=== PATIENT | female | born 1940 | race Caucasian/White ===

== ENCOUNTER 2019-12-04 08:17 | Outpatient (CLI) | payer MEDICARE, SELFPAY ==
--- NOTE | ~2019-12-04 | XR_ITS ---
EXAMINATION: XR chest 2V DATE: 12/04/2019 08:36 INDICATION: Shortness of breath TECHNIQUE: PA and lateral views of the chest are obtained. COMPARISON: 07/18/2018 FINDINGS: The lungs are free of acute opacities. There is no pleural effusion or pneumothorax. The ca rdiomediastinal silhouette is normal. There is mild thoracic spondylosis. A calcified nodule of the l eft lung apex is consistent with old granulomatous disease. There is a large hiatal hernia with likel y intrathoracic stomach. IMPRESSION: 1. No acute cardiopulmonary abnormality. Reviewed, dictated and finalized at location A.
== END 2019-12-04 08:18 | disposition home or self-care (01) ==
DX: R06.02 Shortness of breath (principal)
CPT/HCPCS: 71046

== ENCOUNTER → 2020-04-20 15:00 | Outpatient (CLI) | payer MEDICARE, SELFPAY ==
--- NOTE | ~2020-04-20 | MM_ITS ---
EXAMINATION: MM screening [place] BI w benny HISTORY: Screening TECHNIQUE: Craniocaudal and mediolateral oblique 3-D tomosynthesis images were obtained and synthetic 2-D images were generated. CAD analysis was submitted and interpreted. COMPARISON: No prior mammogram is available for comparison at this institution. BREAST PARENCHYMAL COMPOSITION: There are scattered areas of fibroglandular density. FINDINGS: There are clustered indeterminate left breast calcifications in the upper central left kathie st. No mammographic evidence for malignancy in the right breast. IMPRESSION: 1. Clustered indeterminate left breast calcifications. 2. Magnification views are recommended. BI-RADS CATEGORY 0 - INCOMPLETE STUDY, NEED ADDITIONAL IMAGING EVALUATION. Reviewed, dictated and finalized at location A. 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
== END ==
PROVIDERS: PCP Internal Medicine; Visit Provider Internal Medicine
DX: Z12.31 Encounter for screening mammogram for malignant neoplasm of breast (principal); R92.8 Other abnormal and inconclusive findings on diagnostic imaging of breast
CPT/HCPCS: 77063; 77067

== ENCOUNTER → 2020-05-18 08:54 | Outpatient (CLI) | payer MEDICARE, SELFPAY ==
--- NOTE | ~2020-05-18 | MMUS_ITS ---
EXAMINATION: MM diagnostic mammo unilat LT, US breast LT limited HISTORY: Increasing number and density of pleomorphic calcifications in upper central left breast rep orted on 04/20/2020 bilateral digital screening mammogram TECHNIQUE: Additional ML view of the left breast. Magnification views of the left breast. CAD analysi s was submitted and interpreted. High resolution upper inner and upper outer quadrant left breast ult rasound was performed. COMPARISON: 04/20/2020 bilateral digital screening mammogram FINDINGS: MAMMOGRAPHIC FINDINGS: There are scattered benign calcifications including grouped microcalcifications in the upper mid left breast which have benign configuration most suggestive of partially calcified fibroadenoma. ULTRASOUND: No suspicious mass or suspicious shadowing is detected in the upper inner or upper outer quadrants. IMPRESSION: 1. Benign calcification; no mammographic evidence of malignancy 2. Routine annual mammographic screening is recommended. BI-RADS Category 2: Benign finding(s). Reviewed, dictated and finalized at location A. 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 Benign calcification; no mammographic evidence of malignancy 2. Routine annual mammographic screening is recommended. BI-RADS Category 2: Benign finding(s).
== END ==
PROVIDERS: PCP Internal Medicine; Visit Provider Internal Medicine
DX: R92.8 Other abnormal and inconclusive findings on diagnostic imaging of breast (principal)
CPT/HCPCS: 76642; 77065

== ENCOUNTER → 2020-11-09 12:17 | Outpatient (CLI) | payer MEDICARE, SELFPAY ==
--- NOTE | ~2020-11-09 | DEXA_ITS ---
Bone Density Report Name: Libby Davey Age: 80 Sex: Female Ethnicity: White Date of : 1940 Indication: osteopenia; height loss; postmenopausal Referring Provider: Gregorio, Brittnee Martinez Study: Bone densitometry was performed. Exam Date: November 09, 2020 Accession number: [id number] Bone Density: Region BMD T-score Z-score Classification AP Spine (L1-L4) 0.853 -1.8 1.0 Osteopenia Femoral Neck (Left) 0.689 -1.4 1.0 Osteopenia Total Hip (Left) 0.771 -1.4 0.8 Osteopenia Femoral Neck (Right) 0.652 -1.8 0.6 Osteopenia Total Hip (Right) 0.709 -1.9 0.3 Osteopenia Total Hip Mean 0.740 -1.7 0.6 Osteopenia World Health Organization criteria for BMD impression classify patients as: Normal (T-score at or above -1.0), Osteopenia (T-score between -1.0 and -2.5), or Osteoporosis (T-score at or below -2.5). 10-year Fracture Risk(1): Major Osteoporotic Fracture 13% Hip Fracture 3.8% Reported Risk Factors: [place] (), Neck BMD=0.652, BMI=21.7 (1) FRAX(R) Version 3.08. Fracture probability calculated for an untreated patient. Fracture probability may be lower if the patient has received treatment. Previous Exams: Region Exam Age BMD T-score BMD Change BMD Change Date g/cm2 vs Baseline vs Previous AP Spine(L1-L4) 11/09/2020 80 0.853 -1.8 -0.091* -0.091* 10/16/2017 77 0.944 -0.9 Total Hip(Left) 11/09/2020 80 0.771 -1.4 0.002 0.002 10/16/2017 77 0.768 -1.4 Total Hip(Right) 11/09/2020 80 0.709 -1.9 -0.046* -0.046* 10/16/2017 77 0.755 -1.5 *Denotes significance at 95% confidence level, LSC for AP Spine = 0.022 g/cm2, LSC for Total Hip = 0.027 g/cm2 Clinical Information Provided by Patient: Has used the following medications: Vitamin D, Calcium, MTV Patient maximum height was 65.5 Menopause Age: 53 No regular weight bearing exercise Does not regularly consume dairy products Drinks caffeinated beverages Onset of menses at age 11 Number of children 0 Impression: The patient has low bone mass, based on the Right Total Hip T-score. The patient has an estimated ten-year risk of hip fracture of 3.8% and an estimated ten-year risk of major fracture of 13%, based on the WHO FRAX algorithm. The BMD for the AP Spine(L1-L4) decreased, changing by -0.091 since the last DXA exam. The BMD for the Total Hip(Right) decreased, changing by -0.046 since the last DXA exam. Discussion: CODI
== END ==
PROVIDERS: PCP Internal Medicine; Visit Provider Internal Medicine
DX: Z78.0 Asymptomatic menopausal state (principal); M85.88 Other specified disorders of bone density and structure, other site; M85.851 Other specified disorders of bone density and structure, right thigh; M85.852 Other specified disorders of bone density and structure, left thigh
CPT/HCPCS: 77080

== ENCOUNTER → 2021-05-19 13:10 | Outpatient (CLI) | payer MEDICARE, SELFPAY ==
--- NOTE | ~2021-05-19 | MM_ITS ---
EXAMINATION: MM screening [place] BI w benny HISTORY: Screening mammogram TECHNIQUE: Craniocaudal and mediolateral oblique 3-D tomosynthesis images were obtained and synthetic 2-D images were generated. CAD analysis was submitted and interpreted. COMPARISON: 05/18/2020 diagnostic left mammogram and limited left breast ultrasound 04/20/2020, 09/14/2018 lateral screening mammogram examinations BREAST PARENCHYMAL COMPOSITION: There are scattered areas of fibroglandular density. FINDINGS: Again noted are scattered bilateral benign calcifications. There is no evidence of suspicio us mass, calcification, or architectural distortion to suggest malignancy in either breast. There has been no suspicious interval change. IMPRESSION: 1. No mammographic evidence of malignancy. 2. Recommend routine screening mammography in one year. BI-RADS Category 2: Benign finding(s). Reviewed, dictated and finalized at location A. 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
== END ==
PROVIDERS: PCP Internal Medicine; Visit Provider Internal Medicine
DX: Z12.31 Encounter for screening mammogram for malignant neoplasm of breast (principal)
CPT/HCPCS: 77063; 77067

== ENCOUNTER 2021-12-15 23:48 | Inpatient (IN) | payer MEDICARE, SELFPAY ==
--- NOTE | ~2021-12-15 | CT_ITS ---
EXAMINATION: CT abdomen pelvis w con DATE: 12/16/2021 02:54 INDICATION: Epigastric pain. Elevated liver enzymes. TECHNIQUE: Computed tomography (CT) of the abdomen and pelvis was performed with 100 mL Omnipaque-300 intravenous contrast. Automated exposure control and iterative reconstruction technique were employe d. The dose-length product was 250.03 mGy-cm. COMPARISON: None FINDINGS: Compressive atelectasis in the bilateral lower lobes along the margin of a large sliding-type hiatal hernia which contains the entire fluid-filled stomach. Mild cardiomegaly. Atherosclerotic coronary ar sergey calcifications. Aortic valve and mitral annular calcification is. No pericardial effusion. Cholecystectomy clips in the gallbladder fossa. Mild diffuse intrahepatic biliary ductal dilation and dilation of the common bile duct to 1.2 cm. There is a 9 mm round soft tissue density filling defect in the distal common bile duct concerning for choledocholithiasis. 1.5 cm gas and fluid-filled duode nal diverticulum arising from second portion of the duodenum in position along side the distal common bile duct. There is also dilation of the main pancreatic duct which measures up to 5 mm diameter at the head of the pancreas tapering to 2.5 mm at the tail of the pancreas. Pancreas appears otherwise n ormal with homogeneous parenchymal enhancement and no surrounding inflammatory stranding to suggest a cute interstitial pancreatitis. A few small splenic calcific lesions consistent with old granulomatous disease. Bilateral adrenal gla nds are normal. 7 mm cyst at the upper pole of the left kidney couple smaller more subtle low-attenua tion likely cysts at the lower poles of both kidneys. Prominent descending and sigmoid colon predomin ance diverticulosis without adjacent inflammatory change to suggest diverticulitis. 6.[address] ool at the rectum with moderate amount of stool scattered throughout the more proximal colon. No dila thien small bowel to suggest obstruction. The appendix is not visualized. No pericecal inflammatory doc nge to suggest acute appendicitis. Bladder, atrophic uterus and bilateral adnexa are unremarkable. No free intraperitoneal gas or fluid. No pathologically enlarged abdominal or pelvic lymphadenopathy. M oderate lumbar and lower thoracic spondylosis. IMPRESSION: 1. Dilation of the intrahepatic biliary tree, common bile duct and main pancreatic duct with likely o bstructing also 9 mm soft tissue density is most likely representing a gallstone in the distal common bile duct. Consider ERCP. Pancreas appears otherwise normal but would also correlate with the amylas e and lipase levels. 2. Large sliding-type hiatal hernia containing the entire stomach. 3. Cardiomegaly. 4. Diverticulosis. Reviewed, dictated and finalized at location A. IMPRESSION: 1. Dilation of the intrahepatic biliary tree, common bile duct and main pancrea tic duct with likely obstructing also 9 mm soft tissue density is most likely r epresenting a gallstone in the distal common bile duct. Consider ERCP. Pancreas appears otherwise normal but would also correlate with the amylase and lipase levels. 2. Large sliding-type hiatal hernia containing the entire stomach. 3. Cardiomegaly. 4. Diverticulosis.
--- NOTE | 2021-12-15 23:50 | ECG_ITS ---
Measurements Intervals [place] Rate: 77 P: 64 SD: 172 QRS: 110 QRSD: 142 T: 52 QT: 401 QTc: 454 Interpretive Statements SINUS RHYTHM MARKED RIGHT AXIS DEVIATION [QRS AXIS > 100] RIGHT BUNDLE BRANCH BLOCK [120+ ms QRS DURATION, UPRIGHT V1, 40+ ms S IN I/aVL/V4/V5/V6] COMPARED TO ECG 07/18/2018 15:01:26 RIGHT BUNDLE-BRANCH BLOCK NOW PRESENT RIGHT AXIS DEVIATION NEW Electronically Signed On 12-16-2021 17:55:30 CDT by Nadine Melvin M.D.
[2021-12-16] VITALS (21 sets, daily range): BP systolic 101–172; BP diastolic 34–94; PULSE 63–82; RESP 15–24; TEMP 36.6–37.2; O2SAT 89–100; BMI 22.0; BMI 22.1; BMI 24.3
[2021-12-16 00:13] LABS: Basophils Percent Auto 0.2 % (0.2-1.2); Eosinophils Percent Auto 0.3 % (0-4.4); Hematocrit 36.8 % (37.0-47.0); Hemoglobin 12.1 g/dL (12.0-15.0); Immature Granulocyte Absolute 0.04 K/mm3 (0.00-0.031); Immature Granulocyte Percent A 0.4 % (0-0.5); Lymphocytes Absolute Auto 0.82 K/mm3 (0.9-3.2); Lymphocytes Percent Auto 8.5 % (18.3-44.2); Mean Corpuscular HGB Conc 32.9 g/dl (32-36); Mean Corpuscular Hemoglobin 28.7 pg (26-34); Mean Corpuscular Volume 87.2 fl (80-100); Mean Platelet Volume 8.9 fl (7.4-10.4); Monocytes Absolute Auto 0.5 K/mm3 (0.1-0.6); Monocytes Percent Auto 5.3 % (2.6-8.5); Neutrophils Absolute Auto 8.2 K/mm3 (1.3-6.7); Neutrophils Percent Auto 85.3 % (45.5-73.1); Platelet Count Result 196 k/mm3 (150-375); Red Blood Count 4.22 M/mm3 (4.2-5.4); Red Cell Distribution Width 13.4 % (11.5-14.5); White Blood Count 9.7 K/mm3 (4.5-10.0)
[2021-12-16 00:33] LABS: Alanine Aminotransferase 554 U/L (6-35); Albumin Level 4.7 g/dL (3.5-5.1); Alkaline Phosphatase 163 U/L (38-126); Anion Gap 7 mmol/L (8-16); Bilirubin,Total 1.3 mg/dL (0.2-1.3); Blood Urea Nitrogen 17 mg/dL (7-17); Calcium 9.3 mg/dL (8.4-10.2); Carbon Dioxide 32 mmol/L (22-30); Chloride 101 mmol/L (98-107); Estimated Glomerular Filt Rate 53; Glucose 149 mg/dL (65-110); Lipase 402 U/L (23-300); Potassium 3.9 mmol/L (3.4-5.0); Sodium 140 mmol/L (137-145)
[2021-12-16 00:42] LABS: Troponin I < 0.012 ng/mL (0.000-0.034)
[2021-12-16 00:46] LABS: Aspartate Amino Transferase 1352 U/L (14-36)
--- NOTE | 2021-12-16 02:26 | ED.ABDPAIN ---
HPI - Abdominal Pain General Chief Complaint: Abdominal Pain Stated Complaint: abd pain/chest pain Time Seen by Provider: 12/16/21 02:08 History of Present Illness HPI narrative: 81-year-old female presenting to the emergency department for evaluation of epigastric pain that started approximately 7 PM. Patient describes nausea vomiting denies any diarrhea. Patient states she had her gallbladder out in approximately 2019 at [facility] Related Data Allergies Allergy/AdvReac Type Severity Reaction Status Date / Time No Known Allergies Allergy Unverified 07/18/18 15:45 Review of Systems Review of Systems: CONSTITUTIONAL: Denies fever, chills, or sweats. EYES: Denies visual changes, redness, or discharge. ENT: Denies rhinorrhea, congestion, sore throat, or otalgia. CARDIOVASCULAR: Denies chest pain, palpitations, or edema. RESPIRATORY: Denies cough or dyspnea. GASTROINTESTINAL: Epigastric abdominal pain with associated nausea and vomiting. GENITOURINARY: Denies dysuria or hematuria. SKIN: Denies rash or itching. MUSCULOSKELETAL: Denies back pain, joint pain, or myalgia. NEUROLOGIC: Denies headache, numbness, or weakness. Exam Narrative: APPEARANCE: Well appearing, no pain, no distress, well-nourished. HEAD: normocephalic, atraumatic. EYES: PERRLA/EOMI, conjunctivae clear. NOSE: Normal no drainage EARS:TMS clear with good light reflex. THROAT: Pharynx clear, no exudate. NECK: Supple. No adenopathy, no masses. RESPIRATORY: Airway patent, respirations nonlabored. Clear to auscultation bilaterally, no rales, rhonchi, wheezing. CARDIOVASCULAR: Regular rate and rhythm without murmurs rubs or gallops. ABDOMINAL: Epigastric tenderness to palpation MUSCULOSKELETAL: Moves all extremities. Strength/ROM intact, No edema, No calf tenderness. NEURO: Alert. Cranial nerves II through XII intact. Grossly intact SKIN: Warm, dry. Normal Color Course Course Emergency Course: CT scan showed evidence of a retained gallstone. Patient does follow-up with Dr. Banda. Discussed case with Dr. Biswas and he will see the patient as consult with an anticipated pending ERCP. Discussed the case with the hospitalist and patient was admitted. Patient is resting comfortably after pain treatment. Vital Signs Vital signs: Vital Signs Temperature 97.8 F 12/16/21 00:32 Pulse Rate 78 12/16/21 00:32 Respiratory Rate 18 12/16/21 00:32 Blood Pressure 162/70 H 12/16/21 00:32 Pulse Oximetry 94 12/16/21 00:32 Oxygen Delivery Room Air 12/16/21 00:32 Temperature 97.8 F 12/16/21 00:32 Pulse Rate 78 12/16/21 07:25 Respiratory Rate 19 12/16/21 07:25 Blood Pressure 126/69 12/16/21 07:25 Pulse Oximetry 94 12/16/21 07:39 Oxygen Delivery Nasal Cannula 12/16/21 07:39 Oxygen Flow Rate 2 12/16/21 07:39 MDM - Abdominal Pain Lab Data Attestation: I reviewed the patient's lab results. Result diagrams: 12/15/21 23:59 12/15/21 23:59 Labs: Lab Results 12/15/21 12/15/21 12/15/21 Range/Units 23:59 23:59 23:59 WBC 9.7 (4.5-10.0) K/mm3 RBC 4.22 (4.2-5.4) M/mm3 Hgb 12.1 (12.0-15.0) g/dL Hct 36.8 L (37.0-47.0) % MCV 87.2 (80-100) fl MCH 28.7 (26-34) pg MCHC 32.9 (32-36) g/dl RDW 13.4 (11.5-14.5) % Plt Count 196 (150-375) k/mm3 MPV 8.9 (7.4-10.4) fl Immature Gran % (Auto) 0.4 (0-0.5) % Neut % (Auto) 85.3 H (45.5-73.1) % Lymph % (Auto) 8.5 L (18.3-44.2) % [place] % (Auto) 5.3 (2.6-8.5) % Eos % (Auto) 0.3 (0-4.4) % Baso % (Auto) 0.2 (0.2-1.2) % Lymph # (Auto) 0.82 L (0.9-3.2) K/mm3 [place] # (Auto) 0.5 (0.1-0.6) K/mm3 Eos # (Auto) 0.0 (0-0.3) K/mm3 Baso # (Auto) 0.0 (0.0-0.1) K/mm3 Abs Immat Gran (auto) 0.04 H (0.00-0.031) K/mm3 Absolute Neuts (auto) 8.2 H (1.3-6.7) K/mm3 Absolute Nucleated RBC 0.0 (0.0-0.012) K/mm3 Nucleated RBC % 0.0 (0.0-0.2) % Sodium 140 (137-
[2021-12-16] MEDS: ONDANSETRON INJ 4 MG/2 ML VIAL IV PUSH (02:37)
[2021-12-16] MEDS: MORPHINE SULFATE (*CRX) 2 MG/ML INJ IV PUSH ×2 (02:37→06:33)
[2021-12-16 04:06] LABS: Appearance Urine Clear (Clear); Bilirubin Urine Negative (Negative); Color Urine Yellow (Yellow); Glucose Urine UA Negative (Negative); Ketones Urine Negative (Negative); Leukocyte Esterase Ur Negative LEU/UL (Negative); Nitrate Urine Negative (Negative); Protein Urine 2+ mg/dL (Negative); Specific Grav Ur 1.015 (1.001-1.035); Urobilinogen Urine 0.2 mg/dL (<2.0); pH Urine >=9.0 (5.0-9.0)
[2021-12-16 04:18] LABS: Add Urine Microscopic? YES; Bacteria Urine Trace /hpf; Blood Urine Trace (Negative); Mucus Urine Rare /lpf; WBC Urine 0-3 /hpf
--- NOTE | 2021-12-16 07:23 | PC.NURSE ---
Patient report received from ILANA Jacobs. All questions answered and care of patient assumed. Patient resting quietly in stretcher at this time with family member at bedside and call-light within reach. Awaiting CT results and disposition at this time. Patient rating pain at 4/10. VSS.
[2021-12-16 09:18] LABS: SARS-CoV-2 RNA PCR Negative
--- NOTE | 2021-12-16 09:54 | ADMGEN ---
This patient, Libby Davey, was admitted to [facility] Surg Room 321-01. Patient/family oriented to hospital policies and general routines including ID bracelet, bed and alarms, visiting hours, pain management, procedures, bathroom and other care routines, personal items, smoking policy, room service/diet, and visiting hours. Information on how to activate the Rapid Response Team has been discussed. Patient/Family are encouraged to report perceived risks to care and to ask questions if they do not understand what they are told or what they should do.
[2021-12-16] MEDS: SODIUM CHLORIDE 0.9% IV 1,000 ML 125 ML IV CONT ×3 (10:01→21:54)
--- NOTE | 2021-12-16 10:46 | PC.NURSE ---
Linda Suarez [phone] contact
--- NOTE | 2021-12-16 10:51 | PC.NURSE ---
consent signed for ERCP, gi lab informed.
--- NOTE | 2021-12-16 11:23 | WPDGICN ---
Assessment and Plan Assessment and plan (1) Transaminitis: Code(s): R74.01 - Elevation of levels of liver transaminase levels Status: Acute Assessment and Plan: It appears at this juncture that her transaminitis is due to retained bile duct stone. There is no prior history of liver disease. (2) Common bile duct stone: Code(s): K80.50 - Calculus of bile duct without cholangitis or cholecystitis without obstruction Status: Acute Assessment and Plan: I explained her that we should be able to remove the stone with ERCP. Explain the possible complications, such as bleeding, perforation, or pancreatitis. Pancreatitis occurs in about 3% of individuals until to result in a prolonged hospitalization. Plan ERCP to be done today. GI Consult Note Consult date/time: 12/16/21 11:23 HPI: Libby Davey is a 81 year old female began having epigastric pain about 7:00 p.m. yesterday. She has a previous history of having had a cholecystectomy a few years ago. She presented to the emergency room with complaints of pain and also nausea and vomiting. She has not had a fever at home. She was found to have markedly elevated liver enzymes, AST 1352. ALT was over 500. Alkaline phosphatase also has elevated but bilirubin was upper limits of normal, 1.3. CT scan did show dilated biliary tree with an apparent stone in distal common bile duct. I should add that her lipase is also elevated at 402. has no prior history of pancreatitis. CT scan also shows that she has a large hiatal hernia with basically her Entire stomach above the diaphragm. Review of Systems Review of Systems: All systems reviewed & are unremarkable except as noted in HPI and below PMFSH Past Medical History Medical History CAD (coronary artery disease) Diabetes Hyperlipidemia Hypertension Surgical History Surgical History Stented coronary artery Social History Social History Smoking status: Never smoker Alcohol intake: never Substance use: never Spiritual care concerns: No Meds Home Medications and Allergies Home Medications Medication Instructions Recorded Confirmed Type acetaminophen 500 mg capsule 1,000 mg PO QID PRN Pain 12/16/21 12/16/21 History amlodipine 2.5 mg tablet 1 tablet PO DAILY 12/16/21 12/16/21 History aspirin 81 mg tablet 81 mg PO DAILY 12/16/21 12/16/21 History cholecalciferol (vitamin D3) 25 25 mcg PO DAILY 12/16/21 12/16/21 History mcg (1,000 unit) capsule isosorbide mononitrate 60 mg 1 tablet PO DAILY 12/16/21 12/16/21 History tablet,extended release 24 hr melatonin 10 mg capsule 10 mg PO HS PRN Insomnia 12/16/21 12/16/21 History metformin 500 mg tablet,extended 2 tablet PO DAILY 12/16/21 12/16/21 History release 24 hr metoprolol succinate 50 mg 1 tablet PO DAILY 12/16/21 12/16/21 History tablet,extended release 24 hr multivitamin with iron 1 tablet PO DAILY 12/16/21 12/16/21 History omega-3 acid ethyl esters 1 gram 2 cap PO DAILY 12/16/21 12/16/21 History capsule omeprazole 20 mg capsule,delayed 1 cap PO DAILY 12/16/21 12/16/21 History release quinapril 20 mg tablet 1 tablet PO BID 12/16/21 12/16/21 History rosuvastatin 40 mg tablet 1 tablet PO HS 12/16/21 12/16/21 History trazodone 50 mg tablet 1 tablet PO HS 12/16/21 12/16/21 History vitamin B complex (B 1 tablet PO DAILY 12/16/21 12/16/21 History Complex-Vitamin B12 tablet) vitamins A,C,T-xcin-plktpe 7,160 1 tablet PO DAILY 12/16/21 12/16/21 History unit-113 mg-100 unit tablet (PreserVision AREDS) Allergies Allergy/AdvReac Type Severity Reaction Status Date / Time oxycodone AdvReac Nausea and Verified 12/16/21 10:12 Vomiting Vital Signs Vital Signs - 24 hr 12/16/21 00:32 12/16/21 02:57 12/16/21 03:4
--- NOTE | 2021-12-16 12:03 | PC.NURSE ---
report given to gi lab nurse,
--- NOTE | 2021-12-16 12:24 | PC.NURSE ---
pt picked up for ECRP
[2021-12-16] MEDS: LACTATED RINGERS 1,000 ML 150 ML IV CONT (12:45)
[2021-12-16 12:49] LABS: Glucose Point of Care 143 mg/dl (65-105)
--- NOTE | 2021-12-16 12:54 | WPDANESEPPF ---
Anes - Initial Pre Proc Eval Procedure: Operation Date: 12/16/21 14:15 Proposed Procedures p Endoscopic Retro Cholangiopancreatogram - Uriel Biswas MD Date/Time: 12/16/21 12:54 Surgeon: Vidal Escalante MD Pre Op Diagnosis: ELEVATED LFT Patient Data Age: 81 Gender: F Height: 1.52 m Weight: 56.6 kg Last Vital Signs Temp 37.1 C 12/16/21 12:42 Pulse 71 12/16/21 12:42 Resp 18 12/16/21 12:42 BP 126/53 L 12/16/21 12:42 Pulse Ox 93 12/16/21 12:42 O2 Del Method Room Air 12/16/21 12:42 O2 Flow Rate 2 12/16/21 07:39 Allergies Allergy/AdvReac Type Severity Reaction Status Date / Time oxycodone AdvReac Nausea and Verified 12/16/21 10:12 Vomiting Home Medications Medication Instructions Recorded Confirmed Type acetaminophen 500 mg capsule 1,000 mg PO QID PRN Pain 12/16/21 12/16/21 History amlodipine 2.5 mg tablet 1 tablet PO DAILY 12/16/21 12/16/21 History aspirin 81 mg tablet 81 mg PO DAILY 12/16/21 12/16/21 History cholecalciferol (vitamin D3) 25 25 mcg PO DAILY 12/16/21 12/16/21 History mcg (1,000 unit) capsule isosorbide mononitrate 60 mg 1 tablet PO DAILY 12/16/21 12/16/21 History tablet,extended release 24 hr melatonin 10 mg capsule 10 mg PO HS PRN Insomnia 12/16/21 12/16/21 History metformin 500 mg tablet,extended 2 tablet PO DAILY 12/16/21 12/16/21 History release 24 hr metoprolol succinate 50 mg 1 tablet PO DAILY 12/16/21 12/16/21 History tablet,extended release 24 hr multivitamin with iron 1 tablet PO DAILY 12/16/21 12/16/21 History omega-3 acid ethyl esters 1 gram 2 cap PO DAILY 12/16/21 12/16/21 History capsule omeprazole 20 mg capsule,delayed 1 cap PO DAILY 12/16/21 12/16/21 History release quinapril 20 mg tablet 1 tablet PO BID 12/16/21 12/16/21 History rosuvastatin 40 mg tablet 1 tablet PO HS 12/16/21 12/16/21 History trazodone 50 mg tablet 1 tablet PO HS 12/16/21 12/16/21 History vitamin B complex (B 1 tablet PO DAILY 12/16/21 12/16/21 History Complex-Vitamin B12 tablet) vitamins A,C,Q-zbdr-fgjolw 7,160 1 tablet PO DAILY 12/16/21 12/16/21 History unit-113 mg-100 unit tablet (PreserVision AREDS) Laboratory Tests 12/15/21 12/15/21 12/15/21 23:59 23:59 23:59 WBC 9.7 K/mm3 K/mm3 (4.5-10.0) RBC 4.22 M/mm3 M/mm3 (4.2-5.4) Hgb 12.1 g/dL g/dL (12.0-15.0) Hct 36.8 % L % (37.0-47.0) MCV 87.2 fl fl (80-100) MCH 28.7 pg pg (26-34) MCHC 32.9 g/dl g/dl (32-36) RDW 13.4 % % (11.5-14.5) Plt Count 196 k/mm3 k/mm3 (150-375) MPV 8.9 fl fl (7.4-10.4) Immature Gran % (Auto) 0.4 % % (0-0.5) Neut % (Auto) 85.3 % H % (45.5-73.1) Lymph % (Auto) 8.5 % L % (18.3-44.2) [place] % (Auto) 5.3 % % (2.6-8.5) Eos % (Auto) 0.3 % % (0-4.4) Baso % (Auto) 0.2 % % (0.2-1.2) Lymph # (Auto) 0.82 K/mm3 L K/mm3 (0.9-3.2) [place] # (Auto) 0.5 K/mm3 K/mm3 (0.1-0.6) Eos # (Auto) 0.0 K/mm3 K/mm3 (0-0.3) Baso # (Auto) 0.0 K/mm3 K/mm3 (0.0-0.1) Abs Immat Gran (auto) 0.04 K/mm3 H K/mm3 (0.00-0.031) Absolute Neuts (auto) 8.2 K/mm3 H K/mm3 (1.3-6.7) Absolute Nucleated RBC 0.0 K/mm3 K/mm3 (0.0-0.012) Nucleated RBC % 0.0 % % (0.0-0.2) Sodium 140 mmol/L mmol/L (137-145) Potassium 3.9 mmol/L mmol/L (3.4-5.0) Chloride 101 mmol/L mmol/L (98-107) Carbon Dioxide 32 mmol/L H mmol/L (22-30) Anion Gap 7 mmol/L L mmol/L (8-16) BUN 17 mg/dL mg/dL (7-17) Creatinine 1.00 mg/dL mg/dL (0.7-1.0) Estim Creat Clear Calc Not Reportable Estimated GFR 53 L (59 - ) Glucose 149 mg/dL H mg/dL (65-110) POC Capillary Glucose Calcium 9.3 mg/dL mg/dL (8.4-10.2) Total Bilirubin
[2021-12-16] MEDS: INDOMETHACIN 50 MG SUPP.RECT RECTAL (14:10)
--- NOTE | 2021-12-16 15:05 | PC.NURSE ---
Report received from Patricia PRECIADO gi lab, pt have change in procedure today, unable to do ERCP, EGD done instead, pt to have ERPC tomorrow. Awaiting arrive of pt, pt in recovery room at this time.
--- NOTE | 2021-12-16 15:46 | PM.IMHP ---
H&P: HPI History of Present Illness Date/Time: 12/16/21 15:46 Chief Complaint: abdominal pain Narrative: 78-year-old female presents to the ED with epigastric pain that started last night. There is associated nausea and dry heaving but no vomiting. There is also no history of diarrhea. She has a history of cholecystectomy done few years back. Has underlying history of coronary artery disease and stents placed in 2010. She was evaluated in the ER was found to have elevated liver enzymes with AST in 1352 ALT 5 in 54 and alkaline phosphatase not and 63. Bilirubin is 1.3 lipase level also elevated [address] abdomen pelvis was done which showed dilation of the intrahepatic biliary tree, common bile duct and main pancreatic duct with likely obstructing almost 9 mm soft tissue density most likely representing a gallstone in the distal common bile duct. There is also large sliding-type hiatal hernia containing the entire stomach. She is getting admitted in this setting. She currently reports improved pain since come to the ER. Denies any nausea vomiting. She also denies any fever chills. Review of Systems Review of Systems: - CONSTITUTIONAL: Denies weight loss, fever and chills. - HEENT: Denies changes in vision and hearing - RESPIRATORY: Denies SOB and cough. - CV: Denies palpitations and CP. - GI: Reports abdominal pain, nausea, denies vomiting and diarrhea. - : Denies dysuria and urinary frequency. - MSK: Denies myalgia and joint pain. - SKIN: Denies rash and pruritus. - NEUROLOGICAL: Denies headache and syncope. - PSYCHIATRIC: Denies recent changes in mood. Denies anxiety and depression. [facility] Past Medical History Medical History (Updated 12/16/21 @ 15:49 by Vidal Escalante MD) CAD (coronary artery disease) Diabetes Hyperlipidemia Hypertension Surgical History Surgical History Stented coronary artery Social History Social History Smoking status: Never smoker Alcohol intake: never Substance use: never Spiritual care concerns: No Meds Home Medications and Allergies Home Medications Medication Instructions Recorded Confirmed Type acetaminophen 500 mg capsule 1,000 mg PO QID PRN Pain 12/16/21 12/16/21 History amlodipine 2.5 mg tablet 1 tablet PO DAILY 12/16/21 12/16/21 History aspirin 81 mg tablet 81 mg PO DAILY 12/16/21 12/16/21 History cholecalciferol (vitamin D3) 25 25 mcg PO DAILY 12/16/21 12/16/21 History mcg (1,000 unit) capsule isosorbide mononitrate 60 mg 1 tablet PO DAILY 12/16/21 12/16/21 History tablet,extended release 24 hr melatonin 10 mg capsule 10 mg PO HS PRN Insomnia 12/16/21 12/16/21 History metformin 500 mg tablet,extended 2 tablet PO DAILY 12/16/21 12/16/21 History release 24 hr metoprolol succinate 50 mg 1 tablet PO DAILY 12/16/21 12/16/21 History tablet,extended release 24 hr multivitamin with iron 1 tablet PO DAILY 12/16/21 12/16/21 History omega-3 acid ethyl esters 1 gram 2 cap PO DAILY 12/16/21 12/16/21 History capsule omeprazole 20 mg capsule,delayed 1 cap PO DAILY 12/16/21 12/16/21 History release quinapril 20 mg tablet 1 tablet PO BID 12/16/21 12/16/21 History rosuvastatin 40 mg tablet 1 tablet PO HS 12/16/21 12/16/21 History trazodone 50 mg tablet 1 tablet PO HS 12/16/21 12/16/21 History vitamin B complex (B 1 tablet PO DAILY 12/16/21 12/16/21 History Complex-Vitamin B12 tablet) vitamins A,C,F-euwf-moxgpf 7,160 1 tablet PO DAILY 12/16/21 12/16/21 History unit-113 mg-100 unit tablet (PreserVision AREDS) Allergies Allergy/AdvReac Type Severity Reaction Status Date / Time oxycodone AdvReac Nausea and Verified 12/16/21 10:12 Vomiting Vital Signs Vital Signs - 24 hr 12/16/21 00:32 12/16/21 02:57 12/16/21 03:47 Temperature 97.8 F Pulse Rate 78 82 77 Respiratory Rate 18 20 18 Blo
[2021-12-16] MEDS: METOCLOPRAMIDE HCL INJ 10 MG/2 ML VIAL 5 MG IV PUSH ×2 (18:05→23:17)
[2021-12-16 22:03] LABS: Glucose Point of Care 93 mg/dl (65-105)
[2021-12-17] VITALS (10 sets, daily range): BP systolic 114–144; BP diastolic 52–84; PULSE 66–118; RESP 16–90; TEMP 37.1–37.5; O2SAT 20–96
[2021-12-17] MEDS: METOCLOPRAMIDE HCL INJ 10 MG/2 ML VIAL 5 MG IV PUSH (05:16)
[2021-12-17 06:21] LABS: Basophils Percent Auto 0.1 % (0.2-1.2); Eosinophils Absolute Auto 0.1 K/mm3 (0-0.3); Eosinophils Percent Auto 1.3 % (0-4.4); Hematocrit 33.2 % (37.0-47.0); Hemoglobin 10.6 g/dL (12.0-15.0); Immature Granulocyte Absolute 0.02 K/mm3 (0.00-0.031); Immature Granulocyte Percent A 0.3 % (0-0.5); Lymphocytes Absolute Auto 0.53 K/mm3 (0.9-3.2); Lymphocytes Percent Auto 6.8 % (18.3-44.2); Mean Corpuscular HGB Conc 31.9 g/dl (32-36); Mean Corpuscular Hemoglobin 28.7 pg (26-34); Mean Platelet Volume 9.3 fl (7.4-10.4); Monocytes Absolute Auto 0.5 K/mm3 (0.1-0.6); Monocytes Percent Auto 6.3 % (2.6-8.5); Neutrophils Absolute Auto 6.7 K/mm3 (1.3-6.7); Neutrophils Percent Auto 85.2 % (45.5-73.1); Platelet Count Result 141 k/mm3 (150-375); Red Blood Count 3.69 M/mm3 (4.2-5.4); Red Cell Distribution Width 14.2 % (11.5-14.5); White Blood Count 7.8 K/mm3 (4.5-10.0)
[2021-12-17] MEDS: SODIUM CHLORIDE 0.9% IV 1,000 ML 125 ML IV CONT ×2 (06:49→22:21)
[2021-12-17 07:39] LABS: Glucose Point of Care 83 mg/dl (65-105)
[2021-12-17 07:55] LABS: Alanine Aminotransferase 440 U/L (6-35); Albumin Level 3.4 g/dL (3.5-5.1); Alkaline Phosphatase 173 U/L (38-126); Anion Gap 5 mmol/L (8-16); Aspartate Amino Transferase 333 U/L (14-36); Bilirubin,Total 2.5 mg/dL (0.2-1.3); Blood Urea Nitrogen 20 mg/dL (7-17); Calcium 7.9 mg/dL (8.4-10.2); Carbon Dioxide 22 mmol/L (22-30); Chloride 110 mmol/L (98-107); Estimated CRCL calculation 27 ml/min; Estimated Glomerular Filt Rate 53; Glucose 87 mg/dL (65-110); Lipase 80 U/L (23-300); Sodium 137 mmol/L (137-145)
[2021-12-17 11:27] LABS: Glucose Point of Care 72 mg/dl (65-105)
--- NOTE | 2021-12-17 12:59 | PM.IMPN ---
Progress Note: A&P Assessment and Plan (1) Common bile duct stone: Code(s): K80.50 - Calculus of bile duct without cholangitis or cholecystitis without obstruction Status: Acute (2) Transaminitis: Code(s): R74.01 - Elevation of levels of liver transaminase levels Status: Acute (3) Gallstone: Qualifiers: Biliary obstruction: with biliary obstruction Cholecystitis acuity: acute Cholecystitis presence: with cholecystitis Qualified Code(s): K80.01 - Calculus of gallbladder with acute cholecystitis with obstruction Code(s): K80.20 - Calculus of gallbladder without cholecystitis without obstruction Status: Acute (4) CAD (coronary artery disease): Code(s): I25.10 - Atherosclerotic heart disease of [place] coronary artery without angina pectoris Status: Acute (5) Hypertension: Code(s): I10 - Essential (primary) hypertension Status: Acute (6) Hyperlipidemia: Code(s): E78.5 - Hyperlipidemia, unspecified Status: Acute (7) Diabetes: Code(s): E11.9 - Type 2 diabetes mellitus without complications Status: Acute (8) Atrial fibrillation: Code(s): I48.91 - Unspecified atrial fibrillation Status: Acute Plan # abdominal pain # acute choledocholithiasis CT reviewed. ERCP planned however could not perform as she flipped into afib with rvr and with her hiatal hernia, GI here refers to higher facility dr. Guero Edward. lfts improving. # acute pancreatitis IV fluid pain medication likely biliary. lipas normla today. # elevated liver enzymes likely due to CBD stone. Check hepatitis profile # status post cholecystectomy in the past # large sliding-type hiatal hernia # afib: new onset, noted in the gi lab. ate controlled. will give metoprolol dose this evening. montor heart rate overngiht. card consult in am if not controlled. # coronary artery disease status post stents last in 2010 # diabetes mellitus type 2 on metformin which will be held. SSI # hypertension # hyperlipidemia # DVT prophylaxis Lovenox # code status full code Subjective Date/time seen: 12/17/21 12:59 Interval history: HPI: 78-year-old female presents to the ED with epigastric pain that started last night.? There is associated nausea and dry heaving but no vomiting.? There is also no history of diarrhea.? She has a history of cholecystectomy done few years back.? Has underlying history of coronary artery disease and stents placed in 2010.? She was evaluated in the ER was found to have elevated liver enzymes with AST in 1352 ALT 5 in 54 and alkaline phosphatase not and 63.? Bilirubin is 1.3 lipase level also elevated [address] abdomen pelvis was done which showed dilation of the intrahepatic biliary tree, common bile duct and main pancreatic duct with likely obstructing almost 9 mm soft tissue density most likely representing a gallstone in the distal common bile duct.? There is also large sliding-type hiatal hernia containing the entire stomach.? She is getting admitted in this setting.? She currently reports improved pain since come to the ER.? Denies any nausea vomiting.? She also denies any fever chills. 12/17/2021: seen in gi lab. events noted. pt went into afib with rvr, controlled with metoprolol and diltiazem. no prior hx of afib. egd performed. difficult anatomy due to large sliding hiatal hernia. disucssed with anesthesia and GI Review of Systems Review of Systems: All systems reviewed & are unremarkable except as noted in HPI and below (HPI) Exam Narrative: GENERAL: The patient is well developed, not in acute distress HEENT: Nonicteric sclerae, PERRLA, EOMI. Oropharynx clear. Moist mucous membranes. Conjunctivae appear well perfused. CHEST: Chest wall is nontender. HEART: irregular irregulary, mildly tachyardic, without murmur, rubs, or gallops LUNGS: Clear to auscultation bilaterally. no respiratory distress ABDOMEN: Soft, positive bowel sounds, mildl
--- NOTE | 2021-12-17 13:09 | PC.NURSE ---
To GI Lab via [facility].
[2021-12-17 13:27] LABS: Glucose Point of Care 76 mg/dl (65-105)
[2021-12-17] MEDS: LACTATED RINGERS 1,000 ML 150 ML IV CONT ×2 (13:29→17:24)
--- NOTE | 2021-12-17 13:41 | WPDANESEPPF ---
Anes - Initial Pre Proc Eval Procedure: Operation Date: 12/16/21 14:15 Proposed Procedures p Endoscopic Retro Cholangiopancreatogram - Uriel Biswas MD Operation Date: 12/17/21 13:15 Proposed Procedures p Endoscopic Retro Cholangiopancreatogram - Uriel Biswas MD s Esophagogastroduodenoscopy - Uriel Biswas MD Date/Time: 12/17/21 13:41 Surgeon: Vidal Escalante MD Pre Op Diagnosis: ELEVATED LFT Patient Data Age: 81 Gender: F Height: 1.52 m Weight: 56.6 kg Last Vital Signs Temp 99.5 F 12/17/21 13:31 Pulse 82 12/17/21 13:31 Resp 20 12/17/21 13:31 BP 144/64 H 12/17/21 13:31 Pulse Ox 94 12/17/21 13:31 O2 Del Method Room Air 12/17/21 13:31 O2 Flow Rate 2 12/16/21 14:48 Allergies Allergy/AdvReac Type Severity Reaction Status Date / Time oxycodone AdvReac Nausea and Verified 12/17/21 13:29 Vomiting Home Medications Medication Instructions Recorded Confirmed Type acetaminophen 500 mg capsule 1,000 mg PO QID PRN Pain 12/16/21 12/16/21 History amlodipine 2.5 mg tablet 1 tablet PO DAILY 12/16/21 12/16/21 History aspirin 81 mg tablet 81 mg PO DAILY 12/16/21 12/16/21 History cholecalciferol (vitamin D3) 25 25 mcg PO DAILY 12/16/21 12/16/21 History mcg (1,000 unit) capsule isosorbide mononitrate 60 mg 1 tablet PO DAILY 12/16/21 12/16/21 History tablet,extended release 24 hr melatonin 10 mg capsule 10 mg PO HS PRN Insomnia 12/16/21 12/16/21 History metformin 500 mg tablet,extended 2 tablet PO DAILY 12/16/21 12/16/21 History release 24 hr metoprolol succinate 50 mg 1 tablet PO DAILY 12/16/21 12/16/21 History tablet,extended release 24 hr multivitamin with iron 1 tablet PO DAILY 12/16/21 12/16/21 History omega-3 acid ethyl esters 1 gram 2 cap PO DAILY 12/16/21 12/16/21 History capsule omeprazole 20 mg capsule,delayed 1 cap PO DAILY 12/16/21 12/16/21 History release quinapril 20 mg tablet 1 tablet PO BID 12/16/21 12/16/21 History rosuvastatin 40 mg tablet 1 tablet PO HS 12/16/21 12/16/21 History trazodone 50 mg tablet 1 tablet PO HS 12/16/21 12/16/21 History vitamin B complex (B 1 tablet PO DAILY 12/16/21 12/16/21 History Complex-Vitamin B12 tablet) vitamins A,C,V-bexn-wrjkli 7,160 1 tablet PO DAILY 12/16/21 12/16/21 History unit-113 mg-100 unit tablet (PreserVision AREDS) Laboratory Tests 12/16/21 12/17/21 12/17/21 21:53 06:09 06:09 WBC 7.8 K/mm3 K/mm3 (4.5-10.0) RBC 3.69 M/mm3 L M/mm3 (4.2-5.4) Hgb 10.6 g/dL L g/dL (12.0-15.0) Hct 33.2 % L % (37.0-47.0) MCV 90.0 fl fl (80-100) MCH 28.7 pg pg (26-34) MCHC 31.9 g/dl L g/dl (32-36) RDW 14.2 % % (11.5-14.5) Plt Count 141 k/mm3 L k/mm3 (150-375) MPV 9.3 fl fl (7.4-10.4) Immature Gran % (Auto) 0.3 % % (0-0.5) Neut % (Auto) 85.2 % H % (45.5-73.1) Lymph % (Auto) 6.8 % L % (18.3-44.2) [place] % (Auto) 6.3 % % (2.6-8.5) Eos % (Auto) 1.3 % % (0-4.4) Baso % (Auto) 0.1 % L % (0.2-1.2) Lymph # (Auto) 0.53 K/mm3 L K/mm3 (0.9-3.2) [place] # (Auto) 0.5 K/mm3 K/mm3 (0.1-0.6) Eos # (Auto) 0.1 K/mm3 K/mm3 (0-0.3) Baso # (Auto) 0.0 K/mm3 K/mm3 (0.0-0.1) Abs Immat Gran (auto) 0.02 K/mm3 K/mm3 (0.00-0.031) Absolute Neuts (auto) 6.7 K/mm3 K/mm3 (1.3-6.7) Absolute Nucleated RBC 0.0 K/mm3 K/mm3 (0.0-0.012) Nucleated RBC % 0.0 % % (0.0-0.2) Sodium 137 mmol/L mmol/L (137-145) Potassium 4.0 mmol/L mmol/L (3.4-5.0) Chloride 110 mmol/L H mmol/L (98-107) Carbon Dioxide 22 mmol/L mmol/L (22-30) Anion Gap 5 mmol/L L mmol/L (8-16) BUN 20 mg/dL H mg/dL (7-17) Creatinine 1.00 mg/dL mg/dL (0.7-1.0) Estim Creat Clear Calc 27 ml/min ml/min Estimated
--- NOTE | 2021-12-17 14:32 | PCPTNOTE ---
Attempted PT evaluation, pt off the floor for testing. Will follow.
--- NOTE | 2021-12-17 14:39 | WPDANESPN ---
Anes - Prog Note Post-Op Date/Time: 12/17/21 14:39 Vital Signs: Last Vital Signs Temp 37.5 C 12/17/21 13:31 Pulse 82 12/17/21 13:31 Resp 20 12/17/21 13:31 BP 144/64 H 12/17/21 13:31 Pulse Ox 94 12/17/21 13:31 O2 Del Method Room Air 12/17/21 13:31 O2 Flow Rate 2 12/16/21 14:48 Pain Score (VAS): 0 I/O: Intake & Output 12/16/21 12/17/21 12/17/21 23:59 07:59 15:59 Intake Total 2350 1050 50 Output Total 450 200 Balance 1900 1050 -150 Laboratory Tests 12/17/21 06:09 12/17/21 06:09 12/16/21 12/17/21 12/17/21 21:53 06:09 06:09 WBC 7.8 RBC 3.69 L Hgb 10.6 L Hct 33.2 L MCV 90.0 MCH 28.7 MCHC 31.9 L RDW 14.2 Plt Count 141 L MPV 9.3 Immature Gran % (Auto) 0.3 Neut % (Auto) 85.2 H Lymph % (Auto) 6.8 L [place] % (Auto) 6.3 Eos % (Auto) 1.3 Baso % (Auto) 0.1 L Lymph # (Auto) 0.53 L [place] # (Auto) 0.5 Eos # (Auto) 0.1 Baso # (Auto) 0.0 Abs Immat Gran (auto) 0.02 Absolute Neuts (auto) 6.7 Absolute Nucleated RBC 0.0 Nucleated RBC % 0.0 Sodium 137 Potassium 4.0 Chloride 110 H Carbon Dioxide 22 Anion Gap 5 L BUN 20 H Creatinine 1.00 Estim Creat Clear Calc 27 Estimated GFR 53 L Glucose 87 POC Capillary Glucose 93 Calcium 7.9 L Total Bilirubin 2.5 H AST 333 H ALT 440 H Alkaline Phosphatase 173 H Total Protein 6.0 L Albumin 3.4 L Lipase 80 12/17/21 12/17/21 12/17/21 07:30 11:22 13:25 WBC RBC Hgb Hct MCV MCH MCHC RDW Plt Count MPV Immature Gran % (Auto) Neut % (Auto) Lymph % (Auto) [place] % (Auto) Eos % (Auto) Baso % (Auto) Lymph # (Auto) [place] # (Auto) Eos # (Auto) Baso # (Auto) Abs Immat Gran (auto) Absolute Neuts (auto) Absolute Nucleated RBC Nucleated RBC % Sodium Potassium Chloride Carbon Dioxide Anion Gap BUN Creatinine Estim Creat Clear Calc Estimated GFR Glucose POC Capillary Glucose 83 72 76 Calcium Total Bilirubin AST ALT Alkaline Phosphatase Total Protein Albumin Lipase Patient Feedback: Patient satisfied with anesthetic care.
--- NOTE | 2021-12-17 14:59 | PCOTNOTE ---
Attempted to see pt. for occupational therapy evaluation. Pt. away from room for procedure.
--- NOTE | 2021-12-17 15:07 | SUR.PREOP ---
1500 CHECKED ON PATIENT, GAVE UPDATE ON DOCTOR'S PROGRESS, NO COMPLAINTS FROM PATIENT OR HER FAMILY. OFFERED RESTROOM PT DECLINED.
--- NOTE | 2021-12-17 15:31 | PCCCNOTE ---
On 12/17/21, the student, [Catherine Nieto], provided care and completed [facility] documentation on this patient. I have reviewed the student's documentation and agree with the findings.
--- NOTE | 2021-12-17 16:59 | SUR.PREOP ---
1645 PT BROUGHT BACK TO PROCEDURE ROOM 3, PT HOOKED UP TO THE MONITOR, HR NOTED TO BE 150, B/P 147/63, PULSE OX 92 % ON ROOM AIR. PATIENT DENIES ANY CHEST PAIN OR FEELING OF HER HEART BEATING FAST. NO C/O OF SOB. DR. RILEY ANESTHESIA NOTIFIED. 1650 DR RILEY INTO SEE PATIENT. DISCUSSED PATIENT'S HOME MEDICINE. METOPROL 5 MG IV GIVEN BY DR. RILEY 1655 PT'S O2 STATS DROPPED TO 88 ON ROOM AIR, O2 2L VIA NASAL CANNULA PLACED ON PT 1705 DR RILEY CALLED WITH UP DATE ON VITAL SIGNS. 120 HR A FIB, 154/74, RESP 18, PO 94% ON O2 AT 2 L NASAL CANNULA, NO COMPLAINTS VOICED PER PATIENT. 1714 DILTIAZEM 5 MG IV GIVEN PER DR RILEY. DR. RILEY AT BEDSIDE WITH PATIENT. NO COMPLAINTS VOICED FROM PT, DENIES CHEST PAIN, SOB, DYSPNEA. 1716 B/P 128/63, HR 91 A-FIB, RESP 18, PO 95 WITH O2 AT 2 L PER N/C 1720 DILTAZEM 5 MG IV GIVEN PER DR RILEY. PT SAYS SHE SEES A DR MARIA DOLORES FRIEDMAN IN [facility]. 1723 B/P 138/68, HR 91 A- FIB RESP 18 PO 94 WITH O2 AT 2 L PER N/C 1726 B/P 132/64 HR 102 A- FIB RESP 18 PO 95 WITH 02 AT 2 L PER N/C 1729 DR. ISRAEL IN TALKING WITH PATIENT DR RILEY AND DR ISRAEL DISCUSSED PT'S CONDITION AND PLAN MOVING FORWARD. 1731 167/90 HR 104 AFIB, RESP 18, PO 94 WITH 02 AT 2 L N/C
[2021-12-17] MEDS: SIMETHICONE ORAL SUSPENSION 20 MG/0.3 ML 30 ML BOTTLE 0.6 ML PO (17:47)
--- NOTE | 2021-12-17 17:52 | WPDANESPN ---
Anes - Prog Note Post-Op Date/Time: 12/17/21 17:52 Cardiovascular status: other (A fib with RVR) Vital Signs: Last Vital Signs Temp 37.5 C 12/17/21 13:31 Pulse 82 12/17/21 13:31 Resp 20 12/17/21 13:31 BP 144/64 H 12/17/21 13:31 Pulse Ox 94 12/17/21 13:31 O2 Del Method Room Air 12/17/21 13:31 O2 Flow Rate 2 12/16/21 14:48 Pain Score (VAS): 0 I/O: Intake & Output 12/17/21 12/17/21 12/17/21 07:59 15:59 23:59 Intake Total 1050 50 1000 Output Total 200 Balance 1050 -150 1000 Laboratory Tests 12/17/21 06:09 12/17/21 06:09 12/16/21 12/17/21 12/17/21 21:53 06:09 06:09 WBC 7.8 RBC 3.69 L Hgb 10.6 L Hct 33.2 L MCV 90.0 MCH 28.7 MCHC 31.9 L RDW 14.2 Plt Count 141 L MPV 9.3 Immature Gran % (Auto) 0.3 Neut % (Auto) 85.2 H Lymph % (Auto) 6.8 L [place] % (Auto) 6.3 Eos % (Auto) 1.3 Baso % (Auto) 0.1 L Lymph # (Auto) 0.53 L [place] # (Auto) 0.5 Eos # (Auto) 0.1 Baso # (Auto) 0.0 Abs Immat Gran (auto) 0.02 Absolute Neuts (auto) 6.7 Absolute Nucleated RBC 0.0 Nucleated RBC % 0.0 Sodium 137 Potassium 4.0 Chloride 110 H Carbon Dioxide 22 Anion Gap 5 L BUN 20 H Creatinine 1.00 Estim Creat Clear Calc 27 Estimated GFR 53 L Glucose 87 POC Capillary Glucose 93 Calcium 7.9 L Total Bilirubin 2.5 H AST 333 H ALT 440 H Alkaline Phosphatase 173 H Total Protein 6.0 L Albumin 3.4 L Lipase 80 12/17/21 12/17/21 12/17/21 07:30 11:22 13:25 WBC RBC Hgb Hct MCV MCH MCHC RDW Plt Count MPV Immature Gran % (Auto) Neut % (Auto) Lymph % (Auto) [place] % (Auto) Eos % (Auto) Baso % (Auto) Lymph # (Auto) [place] # (Auto) Eos # (Auto) Baso # (Auto) Abs Immat Gran (auto) Absolute Neuts (auto) Absolute Nucleated RBC Nucleated RBC % Sodium Potassium Chloride Carbon Dioxide Anion Gap BUN Creatinine Estim Creat Clear Calc Estimated GFR Glucose POC Capillary Glucose 83 72 76 Calcium Total Bilirubin AST ALT Alkaline Phosphatase Total Protein Albumin Lipase Patient Feedback: After patient was brought back to endoscopy suite, patient was noted to be in A fib with RVR HR 140's-160's. BP stable and patient asymptomatic otherwise however patient has never been in A fib before to her knowledge and nothing in EMR showing prior episodes of A fib. Patient was given 5mg of metoprolol followed by 10 mg of diltiazem over a course of a few minutes and this brought rate down to 70's-100's, though still in A fib. Discussed with Dr. Biswas about just doing EGD for now but postponing ERCP due to the higher anesthetic requirement needed for an ERCP until patient's rate consistently under control.
--- NOTE | 2021-12-17 18:30 | PC.NURSE ---
Returned from GI Lab via stretcher.
[2021-12-17] MEDS: METOPROLOL SUCCINATE EXT REL 50 MG TABCR PO (19:12)
[2021-12-17 19:28] LABS: Glucose Point of Care 77 mg/dl (65-105)
[2021-12-17] MEDS: MELATONIN 5 MG TABLET 10 MG PO (21:03)
[2021-12-17 21:46] LABS: Hepatitis B Surface Antigen Negative (Negative); Thyroid Stimulating Hormone Reflex 0.879 uIU/mL (0.465-4.68)
[2021-12-17 21:52] LABS: HAV RESULT Negative (Negative); Hepatitis B Core IgM Result Negative (Negative)
[2021-12-17 22:03] LABS: Hepatitis C Virus Antibody Negative (Negative)
[2021-12-17] MEDS: ROSUVASTATIN 10 MG TABLET 40 MG PO (22:29)
[2021-12-17] MEDS: traZODone HCL 50 MG TABLET PO (22:29)
[2021-12-18 05:11] VITALS: BP 156/65; PULSE 68; RESP 18; TEMP 37.5; O2SAT 90
[2021-12-18 06:12] LABS: Basophils Percent Auto 0.4 % (0.2-1.2); Eosinophils Absolute Auto 0.1 K/mm3 (0-0.3); Eosinophils Percent Auto 1.3 % (0-4.4); Hemoglobin 10.4 g/dL (12.0-15.0); Immature Granulocyte Absolute 0.02 K/mm3 (0.00-0.031); Immature Granulocyte Percent A 0.4 % (0-0.5); Lymphocytes Absolute Auto 0.58 K/mm3 (0.9-3.2); Lymphocytes Percent Auto 10.5 % (18.3-44.2); Mean Corpuscular HGB Conc 31.5 g/dl (32-36); Mean Corpuscular Hemoglobin 28.3 pg (26-34); Mean Corpuscular Volume 89.9 fl (80-100); Mean Platelet Volume 9.1 fl (7.4-10.4); Monocytes Absolute Auto 0.4 K/mm3 (0.1-0.6); Neutrophils Absolute Auto 4.4 K/mm3 (1.3-6.7); Neutrophils Percent Auto 79.4 % (45.5-73.1); Platelet Count Result 138 k/mm3 (150-375); Red Blood Count 3.67 M/mm3 (4.2-5.4); White Blood Count 5.5 K/mm3 (4.5-10.0)
[2021-12-18 06:22] LABS: Alanine Aminotransferase 245 U/L (6-35); Albumin Level 3.1 g/dL (3.5-5.1); Alkaline Phosphatase 214 U/L (38-126); Anion Gap 5 mmol/L (8-16); Aspartate Amino Transferase 93 U/L (14-36); Bilirubin,Total 0.9 mg/dL (0.2-1.3); Blood Urea Nitrogen 15 mg/dL (7-17); Calcium 7.7 mg/dL (8.4-10.2); Carbon Dioxide 23 mmol/L (22-30); Chloride 108 mmol/L (98-107); Estimated CRCL calculation 30 ml/min; Estimated Glomerular Filt Rate 60; Glucose 110 mg/dL (65-110); Magnesium 1.9 mg/dL (1.6-2.3); Potassium 3.9 mmol/L (3.4-5.0); Sodium 136 mmol/L (137-145)
[2021-12-18] MEDS: SODIUM CHLORIDE 0.9% IV 1,000 ML 125 ML IV CONT (07:02)
--- NOTE | 2021-12-18 08:00 | ECG_ITS ---
Measurements Intervals [place] Rate: 67 P: 71 ME: 163 QRS: 98 QRSD: 145 T: 15 QT: 426 QTc: 451 Interpretive Statements SINUS RHYTHM RIGHT BUNDLE BRANCH BLOCK ABNORMAL ECG Electronically Signed On 12-18-2021 9:01:00 CDT by Flip Tolliver D.O.
--- NOTE | 2021-12-18 08:07 | WPDANESPN ---
Anes - Prog Note Post-Op Date/Time: 12/18/21 08:07 Cardiovascular status: other (A fib with RVR) Vital Signs: Last Vital Signs Temp 37.5 C 12/18/21 05:11 Pulse 68 12/18/21 05:11 Resp 18 12/18/21 05:11 BP 156/65 H 12/18/21 05:11 Pulse Ox 90 12/18/21 05:11 O2 Del Method Room Air 12/17/21 20:00 O2 Flow Rate 2 12/17/21 18:05 Pain Score (VAS): 06/28 I/O: Intake & Output 12/17/21 12/18/21 12/18/21 23:59 07:59 15:59 Intake Total 2049 1550 Output Total 250 Balance 2049 1300 Laboratory Tests 12/18/21 05:57 12/18/21 05:57 12/17/21 12/17/21 12/17/21 11:22 13:25 19:22 WBC RBC Hgb Hct MCV MCH MCHC RDW Plt Count MPV Immature Gran % (Auto) Neut % (Auto) Lymph % (Auto) [place] % (Auto) Eos % (Auto) Baso % (Auto) Lymph # (Auto) [place] # (Auto) Eos # (Auto) Baso # (Auto) Abs Immat Gran (auto) Absolute Neuts (auto) Absolute Nucleated RBC Nucleated RBC % Sodium Potassium Chloride Carbon Dioxide Anion Gap BUN Creatinine Estim Creat Clear Calc Estimated GFR Glucose POC Capillary Glucose 72 76 77 Calcium Magnesium Total Bilirubin AST ALT Alkaline Phosphatase Total Protein Albumin TSH (Reflex) Hepatitis A IgM Ab Hep Bs Antigen Hep B Core IgM Ab Hepatitis C Ab Screen 12/17/21 12/17/21 12/18/21 20:30 20:30 05:57 WBC 5.5 RBC 3.67 L Hgb 10.4 L Hct 33.0 L MCV 89.9 MCH 28.3 MCHC 31.5 L RDW 14.0 Plt Count 138 L MPV 9.1 Immature Gran % (Auto) 0.4 Neut % (Auto) 79.4 H Lymph % (Auto) 10.5 L [place] % (Auto) 8.0 Eos % (Auto) 1.3 Baso % (Auto) 0.4 Lymph # (Auto) 0.58 L [place] # (Auto) 0.4 Eos # (Auto) 0.1 Baso # (Auto) 0.0 Abs Immat Gran (auto) 0.02 Absolute Neuts (auto) 4.4 Absolute Nucleated RBC 0.0 Nucleated RBC % 0.0 Sodium Potassium Chloride Carbon Dioxide Anion Gap BUN Creatinine Estim Creat Clear Calc Estimated GFR Glucose POC Capillary Glucose Calcium Magnesium Total Bilirubin AST ALT Alkaline Phosphatase Total Protein Albumin TSH (Reflex) 0.879 Hepatitis A IgM Ab Negative Hep Bs Antigen Negative Hep B Core IgM Ab Negative Hepatitis C Ab Screen Negative 12/18/21 05:57 WBC RBC Hgb Hct MCV MCH MCHC RDW Plt Count MPV Immature Gran % (Auto) Neut % (Auto) Lymph % (Auto) [place] % (Auto) Eos % (Auto) Baso % (Auto) Lymph # (Auto) [place] # (Auto) Eos # (Auto) Baso # (Auto) Abs Immat Gran (auto) Absolute Neuts (auto) Absolute Nucleated RBC Nucleated RBC % Sodium 136 L Potassium 3.9 Chloride 108 H Carbon Dioxide 23 Anion Gap 5 L BUN 15 D Creatinine 0.90 Estim Creat Clear Calc 30 Estimated GFR 60 Glucose 110 POC Capillary Glucose Calcium 7.7 L Magnesium 1.9 Total Bilirubin 0.9 AST 93 H ALT 245 H Alkaline Phosphatase 214 H Total Protein 6.0 L Albumin 3.1 L TSH (Reflex) Hepatitis A IgM Ab Hep Bs Antigen Hep B Core IgM Ab Hepatitis C Ab Screen Patient Feedback: Patient satisfied with anesthetic care.
[2021-12-18 08:22] LABS: Glucose Point of Care 124 mg/dl (65-105)
[2021-12-18 09:32] VITALS: PULSE 72
[2021-12-18] MEDS: VITAMIN B COMPLEX CAPSULE 1 CAP PO (09:32)
[2021-12-18] MEDS: ISOSORBIDE MONONITRATE 60 MG TAB.ER.24H PO (09:32)
[2021-12-18] MEDS: METOPROLOL SUCCINATE EXT REL 50 MG TABCR PO (09:32)
[2021-12-18] MEDS: THERAPEUTIC MULTIVITAMINS/MINERALS TAB (*BKC) 1 TABLET PO (09:32)
[2021-12-18 09:34] VITALS: PULSE 72; RESP 18; O2SAT 91
[2021-12-18] MEDS: PANTOPRAZOLE 40 MG TABLET PO (09:34)
[2021-12-18] MEDS: OMEGA 3 POLYUNSAT FATTY ACIDS 1 GM CAP 2 GM PO (09:34)
[2021-12-18] MEDS: CHOLECALCIFEROL 1,000 UNITS TABLET 1000 UNITS PO (09:34)
[2021-12-18] MEDS: ASPIRIN 81 MG CHEWABLE TABLET PO (09:34)
[2021-12-18] MEDS: OPTI-GEN TAB 1 TABLET PO (09:34)
[2021-12-18 11:50] LABS: Glucose Point of Care 158 mg/dl (65-105)
--- NOTE | 2021-12-18 12:58 | PM.DS ---
DS: Admitting Diagnosis Discharge Date 12/18/2021 Admitting Diagnosis abdominal pain DS: Discharge Diagnosis Discharge Diagnosis (1) Common bile duct stone: Code(s): K80.50 - Calculus of bile duct without cholangitis or cholecystitis without obstruction Status: Acute (2) Transaminitis: Code(s): R74.01 - Elevation of levels of liver transaminase levels Status: Acute (3) Gallstone: Qualifiers: Biliary obstruction: with biliary obstruction Cholecystitis acuity: acute Cholecystitis presence: with cholecystitis Qualified Code(s): K80.01 - Calculus of gallbladder with acute cholecystitis with obstruction Code(s): K80.20 - Calculus of gallbladder without cholecystitis without obstruction Status: Acute (4) CAD (coronary artery disease): Code(s): I25.10 - Atherosclerotic heart disease of [place] coronary artery without angina pectoris Status: Acute (5) Hypertension: Code(s): I10 - Essential (primary) hypertension Status: Acute (6) Hyperlipidemia: Code(s): E78.5 - Hyperlipidemia, unspecified Status: Acute (7) Diabetes: Code(s): E11.9 - Type 2 diabetes mellitus without complications Status: Acute (8) Atrial fibrillation: Code(s): I48.91 - Unspecified atrial fibrillation Status: Acute Plan # Abdominal pain # acute choledocholithiasis CT reviewed. ERCP planned however could not perform as she flipped into afib with rvr and with her hiatal hernia. GI suggested referral to higher Facility with Dr. Hernandez with [facility], patient clinically improved with improvement in her LFTs. She will follow-up with them as an outpatient basis to have elective ERCP to remove her CBD stone. Recheck LFT in 1 week # acute pancreatitis IV fluid pain medication likely biliary. lipase normalized # elevated liver enzymes likely due to CBD stone. hepatitis profile negative # status post cholecystectomy in the past # large sliding-type hiatal hernia # afib: new onset, noted in the gi lab. ate controlled. metoprolol restarted and recheck EKG with normal sinus rhythm. 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 # coronary artery disease status post stents last in 2010 # diabetes mellitus type 2 on metformin which will be held. SSI # hypertension # hyperlipidemia # DVT prophylaxis Lovenox # code status full code DS: Summary Hospital Course Hospital Course: see above Time Spent with Patient Time attestation: Total time spent providing and/or coordinating discharge services: 45 minutes Exam Narrative: GENERAL: The patient is well developed, not in acute distress HEENT: Nonicteric sclerae, PERRLA, EOMI. Oropharynx clear. Moist mucous membranes. Conjunctivae appear well perfused. CHEST: Chest wall is nontender. HEART: Regular rate and rhythm, without murmur, rubs, or gallops LUNGS: Clear to auscultation bilaterally. no respiratory distress ABDOMEN: Soft, positive bowel sounds, mildly tender epigastric area, no organomegaly. SKIN: No rash, no excessive bruising, petechiae, or purpura. NEUROLOGIC: Cranial nerves II-XII intact, alert and oriented x 3, no gross motor deficits EXTREMITIES: no edema, cyanosis or clubbing DS: Data Data Completed and Pending Labs on day of discharge: Labs from last 24 hours 12/18/21 12/18/21 12/18/21 11:43 08:20 05:57 WBC RBC Hgb Hct MCV MCH MCHC RDW Plt Count MPV Immature Gran % (Auto) Neut % (Auto) Lymph % (Auto) [place] % (Auto) Eos % (Auto) Baso % (Auto) Lymph # (Auto) [place] # (Auto) Eos # (Auto) Baso # (Auto) Abs Immat Gran (auto) Absolute Neuts (auto) Absolute Nucleated RBC Nucleated RBC % Sodium 136 L Potassium 3.9 Chloride 108 H Carbon Dioxide 23 Anion Gap 5 L BUN 15 D Creatinine 0.90 Estim Creat Clear Calc 30 Estimated GFR 60 Glucose 110 POC Capillary Glucose 158 H
--- NOTE | 2021-12-18 13:46 | WPDGIPROGNO ---
Progress Note: A&P Assessment and Plan (1) Common bile duct stone: Code(s): K80.50 - Calculus of bile duct without cholangitis or cholecystitis without obstruction Status: Acute Assessment and Plan: she is symptomatically better without any pain and liver enzymes trending down, bili already normal (? already passed stone) but still will need evaluation with ERCP- will send referral to Dr Hernandez (she has large hiatal hernia and could not complete ERCP) (2) Transaminitis: Code(s): R74.01 - Elevation of levels of liver transaminase levels Status: Acute Assessment and Plan: trending down no more pain ok to go home (3) Atrial fibrillation: Code(s): I48.91 - Unspecified atrial fibrillation Status: Acute Assessment and Plan: resolved (4) Abdominal pain: Code(s): R10.9 - Unspecified abdominal pain Status: Acute Assessment and Plan: resolved (5) Hiatal hernia: Code(s): K44.9 - Diaphragmatic hernia without obstruction or gangrene Status: Acute Assessment and Plan: large size Subjective Date/time seen: 12/18/21 13:46 Interval history: Dr Biswas could not complete ERCP yesterday because large hiatal hernia and unable to cannulate, also developed A fib but treated now. She is asymptomatic without any more abdominal pain and willing to go home Review of Systems Review of Systems: All systems reviewed & are unremarkable except as noted in HPI and below (HPI) Exam Narrative: GENERAL: The patient is well developed, not in acute distress HEENT: Nonicteric sclerae, PERRLA, EOMI. Oropharynx clear. Moist mucous membranes. Conjunctivae appear well perfused. CHEST: Chest wall is nontender. HEART: Regular rate and rhythm, without murmur, rubs, or gallops LUNGS: Clear to auscultation bilaterally. no respiratory distress ABDOMEN: Soft, positive bowel sounds, mildly tender epigastric area, no organomegaly. SKIN: No rash, no excessive bruising, petechiae, or purpura. NEUROLOGIC: Cranial nerves II-XII intact, alert and oriented x 3, no gross motor deficits EXTREMITIES: no edema, cyanosis or clubbing Objective Data Vital Signs Vital Signs: Vital Signs - 24 hr 12/17/21 17:55 12/17/21 18:05 12/17/21 18:15 Temperature Pulse Rate 102 H 117 H 118 H Respiratory Rate 20 20 20 Blood Pressure 114/52 L 136/62 138/68 Pulse Oximetry 92 92 95 Oxygen Delivery Nasal Cannula Nasal Cannula Room Air Oxygen Flow Rate 2 2 12/17/21 19:12 12/17/21 20:49 12/17/21 20:00 Temperature 99.1 F Pulse Rate 68 104 H 104 H Respiratory Rate 90 H 90 H Blood Pressure 136/84 Pulse Oximetry 20 L 20 L Oxygen Delivery Room Air Oxygen Flow Rate 12/18/21 05:11 12/18/21 07:43 12/18/21 07:27 Temperature 99.5 F Pulse Rate 68 Respiratory Rate 18 Blood Pressure 156/65 H Pulse Oximetry 90 Oxygen Delivery Room Air Room Air Oxygen Flow Rate 12/18/21 09:32 12/18/21 09:34 Temperature Pulse Rate 72 72 Respiratory Rate 18 Blood Pressure Pulse Oximetry 91 Oxygen Delivery Room Air Oxygen Flow Rate Intake/Output Intake/Output: Intake & Output 12/15/21 12/16/21 12/17/21 12/18/21 23:59 23:59 23:59 23:59 Intake Total 2600 3150 1830 Output Total 450 200 250 Balance 2150 2950 1580 Meds/Results Medications: Active Medications Generic Name Dose Route Start Last Admin Trade Name Freq PRN Reason Stop Dose Admin Acetaminophen 1,000 mg 12/17/21 18:57 Acetaminophen 500 Mg Tablet PO QID PRN PAIN RATED 1-3 Aspirin 81 mg 12/18/21 09:00 12/18/21 09:34 Aspirin 81 Mg Chewable Tablet PO 81 mg DAILY [place] Administration Dextrose 12.5 gm 12/16/21 21:45 Dextrose 50% 25 Gm/50 Ml Syringe IV PUSH PRN PRN Hypoglycemia Protocol Fish Oil 2 gm 12/18/21 09:00 12/18/21 09:34 [place] 3 Polyunsat Fatty Acids 1 Gm Cap PO 2 gm DAILY [place] Administration Glucagon 1 mg 12/16/21
== END 2021-12-18 14:10 | disposition home or self-care (01) | DRG 446 ==
LOC: ANHED 12-16 08:45 → ANH3MEDSUR 12-16 09:25
PROVIDERS: Internal Medicine Gastroenterology; Admitting Provider Internal Medicine; Emergency Provider Emergency Medicine; PCP Internal Medicine; Visit Provider Internal Medicine
PROC: 0DJ08ZZ Inspection of Upper Intestinal Tract, Via Natural or Artificial Opening Endoscopic (ICD-10-PCS; CPT 43260; principal; 2021-12-16 14:15)
PROC: (CPT 43260; principal; 2021-12-17 13:15)
PROC: 0DJ08ZZ Inspection of Upper Intestinal Tract, Via Natural or Artificial Opening Endoscopic (ICD-10-PCS; CPT 43235; 2021-12-17 13:15)
DX: K80.01 Calculus of gallbladder with acute cholecystitis with obstruction (principal); Z20.822 Contact with and (suspected) exposure to COVID-19; I25.10 Atherosclerotic heart disease of native coronary artery without angina pectoris; E78.5 Hyperlipidemia, unspecified; K44.9 Diaphragmatic hernia without obstruction or gangrene; I10 Essential (primary) hypertension; E11.43 Type 2 diabetes mellitus with diabetic autonomic (poly)neuropathy; K31.84 Gastroparesis; Z79.899 Other long term (current) drug therapy; Z79.84 Long term (current) use of oral hypoglycemic drugs
CPT/HCPCS: 36415; 74177; 80053; 80074; 81001; 82948; 83690; 83735; 84443; 84484; 85025; 93005; 96361; 96365; 96375; 96376; 97161; 97165; 99285; A9270; C9803; G0378; J0330; J2270; J2405; J2543; J2704; J2765; J3010; J7030; J7120; Q9967; U0003; U0005

== ENCOUNTER 2022-06-18 12:43 | Emergency (ER) | payer MEDICARE, SELFPAY ==
[2022-06-18] VITALS (13 sets, daily range): BP systolic 125–200; BP diastolic 53–110; PULSE 67–93; RESP 15–25; TEMP 36.2; O2SAT 88–98
--- NOTE | ~2022-06-18 | US_ITS ---
EXAMINATION: US abdomen limited DATE: 06/21/2022 16:42 INDICATION: Choledocholithiasis. TECHNIQUE: Multiple grayscale and Doppler ultrasound images of the abdomen were obtained. COMPARISON: CT abdomen and pelvis 06/18/2022 FINDINGS: The visualized portions of the head, body, and tail of the pancreas are normal. There is mo derate intrahepatic biliary duct dilatation. There is normal flow in main portal vein. The common francia t is dilated to 15 mm. IMPRESSION: 1. Moderate intrahepatic and extrahepatic biliary duct dilatation. Reviewed, dictated and finalized at location A. T HARVEST MACHINE OPERATOR
--- NOTE | ~2022-06-18 | CT_ITS ---
EXAMINATION: CT abdomen pelvis w con DATE: 06/18/2022 15:13 INDICATION: Epigastric abd pain, h/o of gallbladder disease TECHNIQUE: Computed tomography (CT) of the abdomen and pelvis was performed with 100 mL Omnipaque-350 intravenous contrast. Automated exposure control and iterative reconstruction technique were employe d. The dose-length product was 220.35 mGy-cm. COMPARISON: 12/16/2021. FINDINGS: Lower thorax: Mild dependent scar/atelectasis. Coronary artery calcification. Aortic annulus calcific ation. Large hiatal hernia containing the majority of the stomach and the majority of the transverse colon. Liver: Enlarged. Biliary/Gallbladder: Gallbladder is absent. Increased intra and extrahepatic bile duct dilation. 12 m m duct stone in the distal duct which has moved distally since the prior study. Pancreas: Stable pancreatic duct dilation. Spleen: Normal. Adrenals:No mass. Kidneys: New left perinephric stranding and fluid. Simple left upper pole cyst. Left inferior pole hy podensity, too small to characterize but most likely represents a cyst. No hydronephrosis. GI tract: Persistent herniation of the stomach which remains in organoaxial position. Generalized gas tric wall edema. No small or large bowel dilation. Appendix not visualized. Diverticulosis without di verticulitis. Mesentery/Peritoneum: No ascites, mass, or free air. Retroperitoneum: No mass. Atherosclerotic abdominal aortic and/or arterial calcifications. Pelvis: Pelvic organs are within normal limits. Soft Tissues: Soft tissues and body wall unremarkable. Bones: No acute osseous finding. IMPRESSION: 1. Persistent organoaxial positioning of the stomach with new severe gastritis. Decreased degree of g astric distention on today's examination, which likely decreases the likelihood of current gastric vo lvulus. 2. Choledocholithiasis with increased intra and extrahepatic bile duct dilation. 3. New perinephric stranding on the left, may represent a ruptured cyst or possibly ascending infecti on. Reviewed, dictated and finalized at location K. EE GROWER IMPRESSION: 1. Persistent organoaxial positioning of the stomach with new severe gastritis. Decreased degree of gastric distention on today's examination, which likely de creases the likelihood of current gastric volvulus. 2. Choledocholithiasis with increased intra and extrahepatic bile duct dilation . 3. New perinephric stranding on the left, may represent a ruptured cyst or poss ibly ascending infection.
--- NOTE | ~2022-06-18 | XR_ITS ---
EXAMINATION: XR chest 1V portable DATE: 06/18/2022 14:00 INDICATION: Epigastric abdominal pain. Nausea. TECHNIQUE: A single frontal view of the chest was obtained. COMPARISON: Chest 2 views 12/04/19, CT abdomen and pelvis 12/16/2021 FINDINGS: There is a large hiatal hernia. There are airspace opacities in the lower lung zones. A eve cified left lung nodule is consistent with old granulomatous disease. No pleural effusion or pneumoth orax. The heart size is normal. IMPRESSION: 1. Large hiatal hernia. 2. Airspace opacities in the lower lung zones, likely atelectasis. Reviewed, dictated and finalized at location A. ER MANAGER
--- NOTE | 2022-06-18 13:21 | ECG_ITS ---
Measurements Intervals [place] Rate: 80 P: 64 UT: 167 QRS: 104 QRSD: 148 T: 41 QT: 409 QTc: 474 Interpretive Statements SINUS RHYTHM POSSIBLE LEFT ATRIAL ENLARGEMENT RIGHT AXIS DEVIATION RIGHT BUNDLE BRANCH BLOCK BASELINE ARTIFACT- I, II, III, AVR, AVL, AVF, V1-V2 ABNORMAL ECG COMPARED TO ECG 12/18/2021 08:10:10 NO SIGNIFICANT CHANGES Electronically Signed On 06-19-2022 7:34:14 LAND LEASING INFORMATION CLERK by Flip Tolliver D.O.
[2022-06-18] MEDS: SODIUM CHLORIDE 0.9% IV 1,000 ML 999 ML IV CONT (13:35)
[2022-06-18] MEDS: ONDANSETRON INJ 4 MG/2 ML VIAL IV PUSH (13:35)
[2022-06-18] MEDS: FAMOTIDINE 20 MG/2 ML VIAL IV PUSH (13:35)
[2022-06-18 13:40] LABS: Basophils Percent Auto 0.4 % (0.2-1.2); Eosinophils Percent Auto 0.2 % (0-4.4); Hematocrit 39.2 % (37.0-47.0); Hemoglobin 12.7 g/dL (12.0-15.0); Immature Granulocyte Absolute 0.02 K/mm3 (0.00-0.031); Immature Granulocyte Percent A 0.2 % (0-0.5); Lymphocytes Absolute Auto 0.61 K/mm3 (0.9-3.2); Lymphocytes Percent Auto 5.4 % (18.3-44.2); Mean Corpuscular HGB Conc 32.4 g/dl (32-36); Mean Corpuscular Hemoglobin 29.4 pg (26-34); Mean Corpuscular Volume 90.7 fl (80-100); Mean Platelet Volume 9.1 fl (7.4-10.4); Monocytes Absolute Auto 0.3 K/mm3 (0.1-0.6); Monocytes Percent Auto 2.6 % (2.6-8.5); Neutrophils Absolute Auto 10.4 K/mm3 (1.3-6.7); Neutrophils Percent Auto 91.2 % (45.5-73.1); Platelet Count Result 187 k/mm3 (150-375); Red Blood Count 4.32 M/mm3 (4.2-5.4); Red Cell Distribution Width 13.4 % (11.5-14.5); White Blood Count 11.4 K/mm3 (4.5-10.0)
[2022-06-18 13:52] LABS: Lactic Acid Reflex 1.6 mmol/L (0.7-2.0)
[2022-06-18 13:55] LABS: INR 1.1; Prothrombin Time 13.4 Seconds (11.1-14.7)
[2022-06-18 13:56] LABS: Partial Thromboplastin Time 35.4 SECONDS (22.3-36.8)
[2022-06-18 14:05] LABS: Troponin I < 0.012 ng/mL (0.000-0.034)
[2022-06-18 14:06] LABS: Add Urine Microscopic? YES; Appearance Urine Clear (Clear); Bilirubin Urine Negative (Negative); Blood Urine Negative (Negative); Color Urine Yellow (Yellow); Glucose Urine UA Negative (Negative); Ketones Urine Negative (Negative); Leukocyte Esterase Ur Trace LEU/UL (Negative); Nitrate Urine Negative (Negative); Protein Urine 1+ mg/dL (Negative); Specific Grav Ur 1.015 (1.001-1.035); Urobilinogen Urine 0.2 mg/dL (<2.0); pH Urine 6.5 (5.0-9.0)
[2022-06-18 14:13] LABS: Bacteria Urine Trace /hpf; Mucus Urine Rare /lpf; Squamous Epithelial Cell Urine Rare /hpf (Few)
--- NOTE | 2022-06-18 14:13 | ED.GENADULT ---
HPI - General Adult General Chief complaint: Abdominal Pain <Patrick Ramos MD - Last Filed: 06/18/22 18:56> Stated complaint: ABD Pain <Patrick Ramos MD - Last Filed: 06/18/22 18:56> Time Seen by Provider: 06/18/22 13:02 <Patrick Ramos MD - Last Filed: 06/18/22 18:56> History of Present Illness HPI narrative: This is a 82-year-old female presenting ED with epigastric pain. Started yesterday at 6:00 a.m. described as a sharp, nonradiating pain that is 6/10 in intensity. It is constant. It was improved with the morphine given her to her by paramedics. It is associated with nausea and vomiting. This no diarrhea, no fever no chills no chest pain or difficulty breathing. Patient has a history of choledocholithiasis requiring an ERCP at an outside hospital due to a technically difficult anatomy. This was performed by Dr. Hernandez (GI) at [facility]. <Patrick Ramos MD - Last Filed: 06/18/22 18:56> Related Data Home medications: Home Medications Medication Instructions Recorded Confirmed acetaminophen 500 mg capsule 1,000 mg PO QID PRN Pain 12/16/21 12/16/21 amlodipine 2.5 mg tablet 1 tablet PO DAILY 12/16/21 12/16/21 aspirin 81 mg tablet 81 mg PO DAILY 12/16/21 12/16/21 cholecalciferol (vitamin D3) 25 25 mcg PO DAILY 12/16/21 12/16/21 mcg (1,000 unit) capsule isosorbide mononitrate 60 mg 1 tablet PO DAILY 12/16/21 06/19/22 tablet,extended release 24 hr melatonin 10 mg capsule 10 mg PO HS PRN Insomnia 12/16/21 12/16/21 metformin 500 mg tablet,extended 2 tablet PO DAILY 12/16/21 12/16/21 release 24 hr metoprolol succinate 50 mg 1 tablet PO DAILY 12/16/21 06/19/22 tablet,extended release 24 hr multivitamin with iron 1 tablet PO DAILY 12/16/21 12/16/21 omega-3 acid ethyl esters 1 gram 2 cap PO DAILY 12/16/21 12/16/21 capsule omeprazole 20 mg capsule,delayed 1 cap PO DAILY 12/16/21 12/16/21 release quinapril 20 mg tablet 1 tablet PO BID 12/16/21 12/16/21 rosuvastatin 40 mg tablet 1 tablet PO HS 12/16/21 12/16/21 trazodone 50 mg tablet 1 tablet PO HS 12/16/21 12/16/21 vitamin B complex (B 1 tablet PO DAILY 12/16/21 12/16/21 Complex-Vitamin B12 tablet) vitamins A,C,H-hekj-dnzdul 2,148 1 tablet PO DAILY 12/16/21 12/16/21 mcg-113 mg-45 mg-17.4 mg tablet (PreserVision AREDS) isosorbide mononitrate 30 mg mg PO 06/19/22 tablet,extended release 24 hr isosorbide mononitrate 30 mg mg PO 06/19/22 tablet,extended release 24 hr <Patrick Ramos MD - Last Filed: 06/18/22 18:56> Allergies/adverse reactions: Allergies Allergy/AdvReac Type Severity Reaction Status Date / Time oxycodone AdvReac Nausea and Verified 06/18/22 12:52 Vomiting <Patrick Ramos MD - Last Filed: 06/18/22 18:56> Review of Systems Review of Systems: CONSTITUTIONAL: Denies night sweats. EYES: No eye pain ENT: Denies rhinorrhea CARDIOVASCULAR: Denies palpitations RESPIRATORY: Denies hemoptysis GASTROINTESTINAL: Denies hematemesis GENITOURINARY: Denies hematuria. SKIN: Denies rash MUSCULOSKELETAL: Denies myalgia. NEUROLOGIC: Denies weakness. PSYCHIATRIC: Denies delusions <Patrick Ramos MD - Last Filed: 06/18/22 18:56> [facility] Past Medical History Medical History: Medical History Abdominal pain CAD (coronary artery disease) Diabetes Hiatal hernia Hyperlipidemia Hypertension <Patrick Ramos MD - Last Filed: 06/18/22 18:56> Surgical History Surgical History: Surgical History Stented coronary artery <Patrick Ramos MD - Last Filed: 06/18/22 18:56> Social History Social History: Social History Smoking status: Never smoker Alcohol intake: never Substance use: never Spiritual care concerns: No <Patrick Ramos MD - Last Filed: 06/18/22 18:56> Exam Narrative:
[2022-06-18 14:16] LABS: Influenza A QL RT-PCR Negative (Negative); Influenza B QL RT-PCR Negative (Negative); RSV RNA, RT-PCR Negative (Negative); SARS-CoV-2 RNA PCR Negative
[2022-06-18 15:03] LABS: Estimated CRCL calculation 38 ml/min; Estimated Glomerular Filt Rate > 60
[2022-06-18 15:18] LABS: Troponin I < 0.012 ng/mL (0.000-0.034)
[2022-06-18 15:20] LABS: Alanine Aminotransferase 667 U/L (6-35); Albumin Level 4.3 g/dL (3.5-5.1); Alkaline Phosphatase 237 U/L (38-126); Anion Gap 8 mmol/L (8-16); Bilirubin,Total 1.6 mg/dL (0.2-1.3); Blood Urea Nitrogen 14 mg/dL (7-17); Calcium 9.2 mg/dL (8.4-10.2); Carbon Dioxide 28 mmol/L (22-30); Chloride 106 mmol/L (98-107); Estimated CRCL calculation 38 ml/min; Estimated Glomerular Filt Rate > 60; Glucose 122 mg/dL (65-110); Lipase 209 U/L (23-300); Magnesium 1.4 mg/dL (1.6-2.3); Potassium 3.8 mmol/L (3.4-5.0); Sodium 142 mmol/L (137-145)
[2022-06-18 15:28] LABS: Aspartate Amino Transferase 1612 U/L (14-36)
[2022-06-18] MEDS: MAG HYDROX/AL HYDROX/SIMETH 30 ML UDC PO (17:44)
--- NOTE | 2022-06-18 18:04 | PC.NURSE ---
Tolerated oral fluids well.
--- NOTE | 2022-06-18 19:15 | PC.NURSE ---
Spoke with intake at [facility], they will call back when they have a bed available.
[2022-06-18] MEDS: PANTOPRAZOLE SODIUM IV 40 MG VIAL IV PUSH (19:23)
[2022-06-18] MEDS: SODIUM CHLORIDE 0.9% IV 1,000 ML 100 ML IV CONT (22:27)
[2022-06-19] VITALS (55 sets, daily range): BP systolic 95–142; BP diastolic 45–86; PULSE 73–92; RESP 15–33; O2SAT 91–99
[2022-06-19 06:36] LABS: Basophils Percent Auto 0.3 % (0.2-1.2); Eosinophils Percent Auto 0.1 % (0-4.4); Hematocrit 34.3 % (37.0-47.0); Hemoglobin 11.4 g/dL (12.0-15.0); Immature Granulocyte Absolute 0.05 K/mm3 (0.00-0.031); Immature Granulocyte Percent A 0.5 % (0-0.5); Lymphocytes Absolute Auto 0.61 K/mm3 (0.9-3.2); Lymphocytes Percent Auto 5.8 % (18.3-44.2); Mean Corpuscular HGB Conc 33.2 g/dl (32-36); Mean Corpuscular Hemoglobin 29.8 pg (26-34); Mean Corpuscular Volume 89.6 fl (80-100); Monocytes Absolute Auto 0.4 K/mm3 (0.1-0.6); Monocytes Percent Auto 3.4 % (2.6-8.5); Neutrophils Absolute Auto 9.4 K/mm3 (1.3-6.7); Neutrophils Percent Auto 89.9 % (45.5-73.1); Platelet Count Result 135 k/mm3 (150-375); Red Blood Count 3.83 M/mm3 (4.2-5.4); Red Cell Distribution Width 14.1 % (11.5-14.5); White Blood Count 10.4 K/mm3 (4.5-10.0)
[2022-06-19 06:46] LABS: Alanine Aminotransferase 564 U/L (6-35); Albumin Level 3.6 g/dL (3.5-5.1); Alkaline Phosphatase 204 U/L (38-126); Anion Gap 6 mmol/L (8-16); Aspartate Amino Transferase 612 U/L (14-36); Blood Urea Nitrogen 14 mg/dL (7-17); Calcium 7.8 mg/dL (8.4-10.2); Carbon Dioxide 26 mmol/L (22-30); Chloride 105 mmol/L (98-107); Estimated CRCL calculation 34 ml/min; Estimated Glomerular Filt Rate 60; Glucose 108 mg/dL (65-110); Lipase 39 U/L (23-300); Sodium 137 mmol/L (137-145)
[2022-06-19] MEDS: SODIUM CHLORIDE 0.9% IV 1,000 ML 100 ML IV CONT (06:55)
--- NOTE | 2022-06-19 08:33 | PC.NURSE ---
bed status update - no beds / pt remains of wait list
--- NOTE | 2022-06-19 13:08 | PC.NURSE ---
reg diet food tray ordered
--- NOTE | 2022-06-19 13:09 | PC.NURSE ---
bed status update-no beds at this time remains on wait list [facility]
--- NOTE | 2022-06-19 16:34 | PC.NURSE ---
reg diet food tray orderd
--- NOTE | 2022-06-19 18:43 | PC.NURSE ---
pt remains on wait list at [facility] - no beds
--- NOTE | 2022-06-19 22:48 | PC.NURSE ---
UPDATED [facility] WITH UPDATED VS NO SIGN OF BED AT THIS TIME PT HAS NO NEEDS AT THIS TIME
--- NOTE | 2022-06-19 23:08 | PC.NURSE ---
Report received from ILANA Sheriff. Assumed care of patient at this time.
[2022-06-20] VITALS (8 sets, daily range): BP systolic 129–163; BP diastolic 60–90; PULSE 63–90; RESP 14–20; TEMP 36.2–37.8; O2SAT 92–98
--- NOTE | 2022-06-20 07:45 | PC.NURSE ---
bed status update-remains on wait list will call when bed available
[2022-06-20 08:30] LABS: Basophils Percent Auto 0.3 % (0.2-1.2); Eosinophils Absolute Auto 0.1 K/mm3 (0-0.3); Eosinophils Percent Auto 1.3 % (0-4.4); Hematocrit 31.6 % (37.0-47.0); Hemoglobin 10.3 g/dL (12.0-15.0); Immature Granulocyte Absolute 0.04 K/mm3 (0.00-0.031); Immature Granulocyte Percent A 0.5 % (0-0.5); Lymphocytes Absolute Auto 0.64 K/mm3 (0.9-3.2); Lymphocytes Percent Auto 8.4 % (18.3-44.2); Mean Corpuscular HGB Conc 32.6 g/dl (32-36); Mean Corpuscular Hemoglobin 29.6 pg (26-34); Mean Corpuscular Volume 90.8 fl (80-100); Mean Platelet Volume 8.8 fl (7.4-10.4); Monocytes Absolute Auto 0.4 K/mm3 (0.1-0.6); Monocytes Percent Auto 5.5 % (2.6-8.5); Neutrophils Absolute Auto 6.4 K/mm3 (1.3-6.7); Platelet Count Result 115 k/mm3 (150-375); Red Blood Count 3.48 M/mm3 (4.2-5.4); Red Cell Distribution Width 14.2 % (11.5-14.5); White Blood Count 7.6 K/mm3 (4.5-10.0)
[2022-06-20 08:40] LABS: Alanine Aminotransferase 295 U/L (6-35); Albumin Level 3.4 g/dL (3.5-5.1); Alkaline Phosphatase 177 U/L (38-126); Anion Gap 3 mmol/L (8-16); Aspartate Amino Transferase 147 U/L (14-36); Bilirubin,Total 0.9 mg/dL (0.2-1.3); Blood Urea Nitrogen 14 mg/dL (7-17); Calcium 8.4 mg/dL (8.4-10.2); Carbon Dioxide 26 mmol/L (22-30); Chloride 105 mmol/L (98-107); Estimated CRCL calculation 38 ml/min; Estimated Glomerular Filt Rate > 60; Glucose 105 mg/dL (65-110); Lipase 68 U/L (23-300); Potassium 3.9 mmol/L (3.4-5.0); Sodium 134 mmol/L (137-145)
--- NOTE | 2022-06-20 12:19 | PC.NURSE ---
reg diet lunch tray ordered
[2022-06-20] MEDS: MORPHINE SULFATE (*CRX) 2 MG/ML INJ IV PUSH (16:06)
[2022-06-20] MEDS: SODIUM CHLORIDE 0.9% IV 1,000 ML 100 ML IV CONT (16:07)
[2022-06-20] MEDS: ONDANSETRON INJ 4 MG/2 ML VIAL IV PUSH (16:07)
--- NOTE | 2022-06-20 16:57 | PC.NURSE ---
reg dinner diet tray ordered
--- NOTE | 2022-06-20 18:35 | PC.NURSE ---
bed suzan at [facility] update = pt remains on wait list no beds available will call with update waiting on discharges
[2022-06-20 19:50] LABS: Influenza A QL RT-PCR Negative (Negative); Influenza B QL RT-PCR Negative (Negative); SARS-CoV-2 RNA PCR Negative
--- NOTE | 2022-06-20 21:26 | PC.NURSE ---
spoke w/ [facility] transfer center for triage update. pt. status and recent vitals given. states there will be no beds tonight.
[2022-06-21 06:24] VITALS: BP 135/63; PULSE 65; TEMP 37.2; O2SAT 95
[2022-06-21 06:33] LABS: Basophils Percent Auto 0.3 % (0.2-1.2); Eosinophils Absolute Auto 0.1 K/mm3 (0-0.3); Eosinophils Percent Auto 2.1 % (0-4.4); Hematocrit 32.2 % (37.0-47.0); Hemoglobin 10.6 g/dL (12.0-15.0); Immature Granulocyte Absolute 0.02 K/mm3 (0.00-0.031); Immature Granulocyte Percent A 0.3 % (0-0.5); Lymphocytes Absolute Auto 0.81 K/mm3 (0.9-3.2); Lymphocytes Percent Auto 13.2 % (18.3-44.2); Mean Corpuscular HGB Conc 32.9 g/dl (32-36); Mean Corpuscular Hemoglobin 29.5 pg (26-34); Mean Corpuscular Volume 89.7 fl (80-100); Mean Platelet Volume 9.1 fl (7.4-10.4); Monocytes Absolute Auto 0.5 K/mm3 (0.1-0.6); Monocytes Percent Auto 7.3 % (2.6-8.5); Neutrophils Absolute Auto 4.7 K/mm3 (1.3-6.7); Neutrophils Percent Auto 76.8 % (45.5-73.1); Platelet Count Result 124 k/mm3 (150-375); Red Blood Count 3.59 M/mm3 (4.2-5.4); Red Cell Distribution Width 13.9 % (11.5-14.5); White Blood Count 6.1 K/mm3 (4.5-10.0)
[2022-06-21 06:43] LABS: Alanine Aminotransferase 199 U/L (6-35); Albumin Level 3.3 g/dL (3.5-5.1); Alkaline Phosphatase 165 U/L (38-126); Anion Gap 4 mmol/L (8-16); Aspartate Amino Transferase 55 U/L (14-36); Bilirubin,Total 0.6 mg/dL (0.2-1.3); Blood Urea Nitrogen 10 mg/dL (7-17); Calcium 8.4 mg/dL (8.4-10.2); Carbon Dioxide 27 mmol/L (22-30); Chloride 107 mmol/L (98-107); Estimated CRCL calculation 43 ml/min; Estimated Glomerular Filt Rate > 60; Glucose 102 mg/dL (65-110); Lipase 79 U/L (23-300); Potassium 3.7 mmol/L (3.4-5.0); Sodium 138 mmol/L (137-145)
[2022-06-21 08:13] VITALS: BP 155/68; PULSE 66; RESP 15; TEMP 36.8; O2SAT 95
--- NOTE | 2022-06-21 10:57 | PC.NURSE ---
Up in bedside chair. Denies pain or nausea. Awaiting bed assign from Mo. Yeager
--- NOTE | 2022-06-21 11:14 | PC.NURSE ---
Patient reports received from ILANA [place]. All questions answered and care of patient assumed. Patient resting comfortably in stretcher with call-light in reach. No complaints. Denies pain. Awaiting available bed and [facility]. Will address any needs as they arise.
--- NOTE | 2022-06-21 13:18 | PC.NURSE ---
Received call from [facility]. Updates provided as requested. No ETA on bed availability.
[2022-06-21 15:00] VITALS: BP 158/82; PULSE 77; RESP 18; O2SAT 95
--- NOTE | 2022-06-21 16:10 | PC.NURSE ---
Patient off unit to US.
--- NOTE | 2022-06-21 16:31 | PC.NURSE ---
Patient returned to room from US. Family at bedside. Call-light within reach. Awaiting results. Will continue to address patient's needs as they arise.
--- NOTE | 2022-06-21 17:50 | PC.NURSE ---
Patient has been taking her own home medications as instructed by ED Provider.
--- NOTE | 2022-06-21 19:20 | PC.NURSE ---
Spoke with the [facility] transfer center. There is no bed avaiable yet and the patient is still on the board.
[2022-06-21 20:05] VITALS: BP 146/76; PULSE 92; RESP 16; TEMP 36.8; O2SAT 92
--- NOTE | 2022-06-21 23:13 | PC.NURSE ---
Patient report given to ILANA Hdz. All questions answered and care of patient transferred.
[2022-06-22 06:43] VITALS: BP 143/60; PULSE 60; RESP 14; TEMP 36.8; O2SAT 97
--- NOTE | 2022-06-22 09:00 | PC.NURSE ---
update 06/21 Wagner called at 1305 for update on pt
== END 2022-06-22 09:00 | disposition short-term general hospital (02) ==
PROVIDERS: Emergency Medicine; General Practice; Emergency Provider Emergency Medicine; PCP Internal Medicine
DX: K80.50 Calculus of bile duct without cholangitis or cholecystitis without obstruction (principal); K29.70 Gastritis, unspecified, without bleeding; R74.01 Elevation of levels of liver transaminase levels; Z20.822 Contact with and (suspected) exposure to COVID-19; I25.10 Atherosclerotic heart disease of native coronary artery without angina pectoris; E11.9 Type 2 diabetes mellitus without complications; E78.5 Hyperlipidemia, unspecified; I10 Essential (primary) hypertension; Z79.82 Long term (current) use of aspirin; Z79.84 Long term (current) use of oral hypoglycemic drugs; R94.31 Abnormal electrocardiogram [ECG] [EKG]; I45.10 Unspecified right bundle-branch block
CPT/HCPCS: 36415; 71045; 74177; 76705; 80053; 81001; 83605; 83690; 83735; 84484; 85025; 85610; 85730; 87086; 87088; 87636; 87637; 93005; 96361; 96365; 96367; 96375; 96376; 99285; A9270; C9113; J0131; J0696; J2270; J2405; J7030; Q9967

== ENCOUNTER → 2022-08-30 13:54 | Outpatient (CLI) | payer MEDICARE, SELFPAY ==
--- NOTE | ~2022-08-30 | MM_ITS ---
EXAMINATION: MM screening [facility] w benny HISTORY: Screening mammogram TECHNIQUE: Craniocaudal and mediolateral oblique 3-D tomosynthesis images were obtained and synthetic 2-D images were generated. CAD analysis was submitted and interpreted. COMPARISON: 05/19/2021 bilateral screening mammogram 05/18/2020 diagnostic left mammogram and limited left breast ultrasound 04/20/2020, 09/14/2018 bilateral screening mammogram examinations BREAST PARENCHYMAL COMPOSITION: There are scattered areas of fibroglandular density. FINDINGS: There are scattered bilateral benign calcifications. There is no evidence of suspicious mas s, calcification, or architectural distortion to suggest malignancy in either breast. There has been no suspicious interval change. IMPRESSION: 1. No mammographic evidence of malignancy. 2. Recommend routine screening mammography in one year. BI-RADS Category 2: Benign finding(s). Reviewed, dictated and finalized at location A.
== END ==
PROVIDERS: PCP Internal Medicine; Visit Provider Internal Medicine
DX: Z12.31 Encounter for screening mammogram for malignant neoplasm of breast (principal)
CPT/HCPCS: 77063; 77067

== ENCOUNTER 2023-09-19 13:48 | Outpatient (CLI) | payer MEDICARE, SELFPAY ==
--- NOTE | ~2023-09-19 | MM_ITS ---
EXAMINATION: MM screening [facility] BI w benny HISTORY: Screening TECHNIQUE: Craniocaudal and mediolateral oblique 3-D tomosynthesis images were obtained and synthetic 2-D images were generated. CAD analysis was submitted and interpreted. COMPARISON: Comparison to multiple prior studies sequentially, with oldest reviewed study dated 09/13. BREAST PARENCHYMAL COMPOSITION: Not dense: There are scattered areas of fibroglandular density. FINDINGS: There is no evidence of suspicious mass, calcification, or architectural distortion to sugg est malignancy in either breast. There has been no suspicious interval change. IMPRESSION: 1. No mammographic evidence of malignancy. 2. Recommend routine screening mammography in one year. BI-RADS Category 1: Negative Reviewed, dictated and finalized at location A.
== END 2023-09-19 13:49 ==
LOC: MICIMG 13:49
PROVIDERS: PCP Internal Medicine; Visit Provider Internal Medicine
DX: Z12.31 Encounter for screening mammogram for malignant neoplasm of breast (principal)
CPT/HCPCS: 77063; 77067

== ENCOUNTER 2024-10-14 10:49 | Outpatient (CLI) | payer MEDICARE, SELFPAY ==
--- NOTE | ~2024-10-14 | MM_ITS ---
EXAMINATION: MM screening [facility] w benny HISTORY: Screening mammogram TECHNIQUE: Craniocaudal and mediolateral oblique 3-D tomosynthesis images were obtained and synthetic 2-D images were generated. CAD analysis was submitted and interpreted. COMPARISON: 09/19/2023, 08/30/2022 BREAST PARENCHYMAL COMPOSITION:Not Dense. There are scattered areas of fibroglandular density. FINDINGS: No suspicious mass, calcification, or architectural distortion are identified in either amaris ast to suggest malignancy. There has been no suspicious interval change. IMPRESSION: No mammographic evidence of malignancy. Recommend routine screening mammography in one year. BI-RADS Category 1: Negative Reviewed, dictated and finalized at location .
== END 2024-10-14 10:50 | disposition home or self-care (01) ==
LOC: MICIMG 10:50
PROVIDERS: PCP Internal Medicine; Visit Provider Internal Medicine
DX: Z12.31 Encounter for screening mammogram for malignant neoplasm of breast (principal)
CPT/HCPCS: 77063; 77067